=== PATIENT | female | born 1960 | race Caucasian/White ===

== ENCOUNTER 2022-05-21 18:18 | Emergency (ER) | payer BC, SELFPAY ==
[2022-05-21 18:42] VITALS: BP 118/76; PULSE 76; RESP 18; TEMP 36.6; O2SAT 97; BMI 32.6
--- NOTE | 2022-05-21 18:44 | CRLHL7_ITS ---
For Patients: As a result of the Century Cures Act, medical imaging exams and procedure reports are released immediately into your electronic medical record. You may view this report before your referring provider. If you have questions, please contact your health care provider. INDICATION: Foot pain. COMPARISON: None. TECHNIQUE: Three radiographs left foot. FINDINGS: Possible soft tissue swelling along the dorsal forefoot. Normal alignment. Joint spaces preserved. No fracture. IMPRESSION: No acute osseous abnormality. Dictated by Vamsi Rodrigues MD @ 05/21/2022 7:17:59 PM (Electronically Signed)
--- NOTE | 2022-05-21 18:48 | ED.NURSE ---
Pt to radiology
--- NOTE | 2022-05-21 18:54 | ED.NURSE ---
Pt done with radiology, back in lobby
== END 2022-05-21 19:10 | disposition left against medical advice (07) ==
LOC: ED 19:08
DX: Z53.21 Procedure and treatment not carried out due to patient leaving prior to being seen by health care provider (principal)
CPT/HCPCS: 99281; 73630

== ENCOUNTER 2024-03-04 09:52 | Outpatient (CLI) | payer MEDICARE, BC, SELFPAY | END 2024-03-04 09:53 | disposition home or self-care (01) | PROVIDERS: PCP Nurse Practitioner Family; Visit Provider Nurse Practitioner Family | DX: Z00.00 Encounter for general adult medical examination without abnormal findings (principal); E11.9 Type 2 diabetes mellitus without complications; I10 Essential (primary) hypertension; G62.9 Polyneuropathy, unspecified; M85.80 Other specified disorders of bone density and structure, unspecified site; I25.10 Atherosclerotic heart disease of native coronary artery without angina pectoris | CPT/HCPCS: 80053; 80061; 82043; 82570; 82607; 84443 ==

== ENCOUNTER 2024-03-18 15:23 | Outpatient (CLI) | payer MEDICARE, BC, SELFPAY ==
--- NOTE | 2024-03-18 15:30 | CRLHL7_ITS ---
For Patients: As a result of the Century Cures Act, medical imaging exams and procedure reports are released immediately into your electronic medical record. You may view this report before your referring provider. If you have questions, please contact your health care provider. DXA BONE MINERAL DENSITY STUDY Reason for exam: Osteopenia. Current height (in): 62. Weight (lb): 180. Menopause age: 40. Ethnicity: White. 1. Have you had a previous hip or vertebral fracture? No. 2. Have you had any fractures during your adult life which did not result from significant trauma (e.g., auto accident)? No. 3. Did either of your parents have a hip fracture? No. 4. Do you smoke? No. 5. Have you ever taken Glucocorticoids? No. 6. Do you have rheumatoid arthritis? No. 7. Do you have secondary osteoporosis? No. 8. Do you drink 3 or more alcoholic drinks per day? No. 9. Are you being treated for osteoporosis? No. 10. Have you ever taken any of the following medications: Actonel, Evista, Fosamax, Miacalcin, Reclast, Boniva, Forteo, HRT (i.e. estrogen/hormone therapy), Protelos, Prolia, Vitamin D, Calcium, other ??? please specify. ANSWER: Yes, vitamin D, calcium. 11. Do you have any of the following medical conditions: Anorexia or bulimia, asthma or emphysema, end stage renal disease, hyperparathyroidism, any seizure disorders, cancer, inflammatory bowel diseases, hysterectomy, other ??? please specify. ANSWER: No. 12. What was your maximum height (inches)? 62. 13. Do you perform weight bearing exercise regularly? No. 14. Do you regularly consume dairy products? Yes. 15. Do you drink caffeinated beverages? Yes. 16. At what age did your period start? 10. 17. Are you premenopausal? No. 18. How many full term pregnancies have you had? 4. 19. Have you ever missed your period for more than 6 months in a row (not including or menopause)? No. TECHNIQUE: Bone mineral density study was performed using the VU[employer]. FINDINGS: The results of the study expressed as bone mineral density (BMD) are as follows: Lumbar spine L1 to L4: BMD: 1.197 g/cm2. T-score: 1.4. Z-score: 3.1. Neck Left: BMD: 0.764 g/cm2. T-score: -0.8. Z-score: 0.8. Right: BMD: 0.666 g/cm2. T-score: -1.6. Z-score: -0.1. Total Left: BMD: 0.821 g/cm2. T-score: -1.0. Z-score: 0.3. Right: BMD: 0.871 g/cm2. T-score: -0.6. Z-score: 0.7. IMPRESSION: Osteopenia. *Comparison exams done prior to 03/2020 were performed on different unit, [employer]. COMPARISON: Compared with scan of 12/23/2013, the bone mineral density has increased by 21.5 percent at the spine and increased by 6.3 percent at the hip. FRAX 10-year Fracture Risk Major Osteoporotic Fracture: 8.8 percent Hip Fracture: 1.0 percent Reported Risk Factors: [place] () Neck BMD=0.666, BMI=32.9 MICHAEL DOUGHERTY M.D. [email or web address] be/Dictated by: Michael Dougherty MD @ 03/19/2024 4:05:00 PM (Electronically Signed)
== END 2024-03-18 15:24 | disposition home or self-care (01) ==
LOC: RAD 15:25
PROVIDERS: PCP Nurse Practitioner Family; Visit Provider Nurse Practitioner Family
DX: M85.80 Other specified disorders of bone density and structure, unspecified site (principal); M85.89 Other specified disorders of bone density and structure, multiple sites; Z78.0 Asymptomatic menopausal state
CPT/HCPCS: 77080

== ENCOUNTER 2024-05-25 13:40 | Outpatient (CLI) | payer MEDICARE, BC, SELFPAY ==
--- NOTE | 2024-05-25 13:40 | CRLHL7_ITS ---
For Patients: As a result of the Century Cures Act, medical imaging exams and procedure reports are released immediately into your electronic medical record. You may view this report before your referring provider. If you have questions, please contact your health care provider. BILATERAL SCREENING MAMMOGRAM WITH COMPUTER-AIDED DETECTION AND TOMOSYNTHESIS TECHNIQUE: CC and MLO views were obtained. These mammographic images have been obtained using full-field digital technique. These mammographic images were interpreted with the benefit of computer-aided detection. Breast tomosynthesis was used in this interpretation. COMPARISON FILM: 11/17/20, 09/08/19, 08/31/18. FINDINGS: There are scattered areas of fibroglandular density. IMPRESSION: There is no radiographic evidence for malignancy. ASSESSMENT: BI-RADS Category 2: Benign RECOMMENDATION: Routine screening mammogram in 1 year. A lay language report of this examination will be provided to the patient. ISAC LOYA M.D. Diagnostic Radiologist [email or web address] Transcribed: 3:[address]/Dictated by: Isac Loya MD @ 05/26/2024 11:06:00 AM (Electronically Signed)
== END 2024-05-25 13:41 | disposition home or self-care (01) ==
LOC: MAMMO 13:40
PROVIDERS: PCP Nurse Practitioner Family; Visit Provider Nurse Practitioner Family
DX: Z12.31 Encounter for screening mammogram for malignant neoplasm of breast (principal)
CPT/HCPCS: 77063; 77067

== ENCOUNTER 2024-05-26 16:34 | Emergency (ER) | payer MEDICARE, BC, SELFPAY ==
[2024-05-26 16:39] VITALS: BP 105/72; PULSE 78; RESP 16; TEMP 36.4; O2SAT 97; BMI 33.3
--- NOTE | 2024-05-26 16:44 | ED_ITS ---
HPI - Wound/Laceration General Time Seen by Provider: 16:44 Date Seen: 05/26/24 Chief Complaint: Laceration/Wound Stated Complaint: laceration on left index finger Time Seen by Provider: 05/26/24 16:35 Source: patient and RN notes reviewed Mode of arrival: ambulatory Limitations: no limitations History of Present Illness HPI narrative: Minna is a 63-year-old female that accidentally cut her finger on a trimmer buffing wheel about an hour ago. She has bandages on and the bleeding has stopped. She is on Plavix, is on an 81 mg aspirin but has not taken 1 for a while as she ran out. She states she just has not gotten to the store to replace them. Related Data Home Medications ?Medication ?Instructions ?Recorded ?Confirmed clopidogrel 75 mg tablet 75 mg PO QDAY 01/06/24 03/04/24 gabapentin 600 mg tablet 600 mg PO TID 01/06/24 03/04/24 simvastatin 40 mg tablet 40 mg PO QDAY 01/06/24 03/04/24 calcium carbonate 600 mg-vitamin cap PO 03/16/24 03/16/24 D3 10 mcg (400 unit) capsule lansoprazole 15 mg capsule,delayed 15 mg PO QDAY 03/16/24 03/16/24 release Previous Rx's ?Medication ?Instructions ?Recorded bupropion HCl 150 mg tablet,12 hr 150 mg PO BID #180 tabs 02/25/24 sustained-release semaglutide 0.25 mg or 0.5 mg (2 0.25 mg (0.368 mL) subcut QWEEK 90 03/08/24 mg/3 mL) subcutaneous pen injector days #4.784 mL metformin 1,000 mg tablet 1,000 mg PO BID #180 tabs 03/15/24 pen needle, diabetic 29 gauge x #100 ea 03/15/24 1/2 (Comfort EZ Pen [place]) blood-glucose meter,continuous #1 ea 03/16/24 (Dexcom G7 Guest Specialist) blood-glucose sensor (Dexcom G7 #3 ea 03/16/24 Sensor device) glipizide 5 mg tablet 2.5 mg (1/2 x 5 mg) PO BID #90 tabs 03/16/24 lisinopril 20 mg tablet 20 mg PO QDAY #90 tabs 03/16/24 metoprolol tartrate 25 mg tablet 25 mg PO BID #180 tabs 03/16/24 Allergies Allergy/AdvReac Type Severity Reaction Status Date / Time azithromycin AdvReac Intermediate Vomiting Verified 05/26/24 16:42 PFSH PFSH Surgical History (Updated 03/03/24 @ 20:40 by Nola Perez APRN, WASTE MANAGEMENT ENGINEER) History of esophagogastroduodenoscopy (EGD) ?Z98.890 - Other specified postprocedural states (ICD-10) History of cholecystectomy ?Z90.49 - Acquired absence of other specified parts of digestive tract (ICD- 10) History of colonoscopy ?Z98.890 - Other specified postprocedural states (ICD-10) History of appendectomy ?Z90.49 - Acquired absence of other specified parts of digestive tract (ICD- 10) History of coronary angioplasty ?Z98.61 - Coronary angioplasty status (ICD-10) History of tubal ligation ?Z98.51 - Tubal ligation status (ICD-10) Family History (Updated 03/04/24 @ 12:21 by Nola Perez APRN, WASTE MANAGEMENT ENGINEER) Father Prostate cancer, Onset Age: 95 Brother HIV (human immunodeficiency virus infection) Mother Osteoporosis Daughter Barretts esophagus Social History (Updated 01/15/24 @ 18:37 by Nola Perez APRN, WASTE MANAGEMENT ENGINEER) Narrative: . 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 Current smoker. No alcohol. No illicit drug use. Exam Const: Vital Signs, click to edit/add: Vital Signs - 24 hr 05/26/24 16:39 Temperature 97.5 F L Pulse Rate [Pulse Oximeter] 78 Respiratory Rate 16 Blood Pressure [Ri ght Upper Arm] 105/72 Pulse Oximetry 97 Oxygen Delivery Me thod Room Air Bandages were removed from her left hand index finger and she has a V flap type laceration with the base of skin proximal. There is active bleeding. This laceration is along the lateral distal phalanx of the 2nd finger but does not involve the nail. Procedure note: As this wound was inspected further, there are some other areas, somewhat complex laceration. A total of 8 simple interrupted sutures were placed in this wound to reapproximate the tissues. Patient did demonstrate full flexion and extension along the course of this digit, there is no compromised motor function. Although the wound was deep, it did not compromise any underlying structures. Hemostasis was observed with placement of the simple interrupted sutures, 4-0 Ethilon was used. Up nursing staff did clean the wound but due to the significant ongoing oozing of blood, repair was done quickly. For anesthesia, localized it injection with a total of 3 mL of 1% lidocaine was used, total of 8 mL was drawn up. No distal change in sensation of this finger prior to the repair. She is aware that there can be some local anesthesia from the wound. Documenting provider has reviewed patient's vital signs: yes Course Course ED Course: Minna thought her tetanus was up-to-date, it is last noted to be given on 08/11/2014, will see if she wants to update it now. Reevaluation(s) Time of Reevaluation #1: 17:11 Reevaluation #1: Minna agrees to have her tetanus updated at this time. Vital Signs Vital signs: Initial Vital Signs Temperature 97.5 F L 05/26/24 16:39 Temperature Source Temporal Artery Scan 05/26/24 16:39 Pulse Rate 78 05/26/24 16:39 Pulse Rhythm Regular 05/26/24 16:39 Pulse Strength 3+ Normal 05/26/24 16:39 Respiratory Rate 16 05/26/24 16:39 Blood Pressure 105/72 05/26/24 16:39 Blood Pressure Mean 83 05/26/24 16:39 Blood Pressure Position Sitting 05/26/24 16:39 Pulse Oximetry 97 05/26/24 16:39 Oxygen Delivery Method Room Air 05/26/24 16:39 Vital Signs Temperature 97.5 F L 05/26/24 16:39 Pulse Rate 78 05/26/24 16:39 Respiratory Rate 16 05/26/24 16:39 Blood Pressure 105/72 05/26/24 16:39 Pulse Oximetry 97 05/26/24 16:39 Oxygen Delivery Method Room Air 05/26/24 16:39 Temperature 97.5 F L 05/26/24 16:39 Pulse Rate 78 05/26/24 16:39 Respiratory Rate 16 05/26/24 16:39 Blood Pressure 105/72 05/26/24 16:39 Pulse Oximetry 97 05/26/24 16:39 Oxygen Delivery Method Room Air 05/26/24 16:39 Discharge Plan Discharge Clinical Impression: Finger laceration Qualifiers: Encounter type: initial encounter Finger: index finger Damage to nail status: without damage Foreign body presence: without foreign body Laterality: left Qualified Code(s): S61.211A - Laceration without foreign body of left index finger without damage to nail, initial encounter Patient Disposition: Home, Self-Care Condition: Stable Instructions: Finger Laceration (ED) Additional Instructions: May shower and wash hands but should otherwise keep this finger clean and dry. Use bandages with bacitracin to keep the wound protected if you are out or in public. Need to schedule clinic follow-up in about 10 days to assess this wound for suture removal. If there is concern for infection, please seek re- evaluation. Can use Tylenol for discomfort if needed, follow bottle directions. Try to rest your finger, can use ice pack to help diminish any ongoing mild bleeding of this wound, may need to minimize use of the finger for the next couple of days. Prescriptions: No Action (DME) pen needle, diabetic [Comfort EZ Pen [place]] 29 gauge x 1/2 needle See Rx Instructions .Route Qty: 100 3RF Rx Instructions: weekly lansoprazole 15 mg capsule,delayed release(DR/EC) 15 mg PO QDAY calcium carbonate-vitamin D3 600 mg-10 mcg (400 unit) capsule PO (DME) Dexcom G7 Guest Specialist Misc See Rx Instructions .Route Qty: 1 0RF Rx Instructions: As directed (DME) Dexcom G7 Sensor Device See Rx Instructions .Route Qty: 3 6RF Rx Instructions: As directed clopidogrel 75 mg tablet 75 mg PO QDAY gabapentin 600 mg tablet 600 mg PO TID simvastatin 40 mg tablet 40 mg PO QDAY bupropion HCl 150 mg tablet sustained-release 12 hr 150 mg PO BID Qty: 180 3RF semaglutide 0.25 mg or 0.5 mg (2 mg/3 mL) pen injector 0.25 mg subcut QWEEK 90 Days Qty: 4.784 3RF Rx Instructions: for 4 weeks metformin 1,000 mg tablet 1,000 mg PO BID Qty: 180 3RF metoprolol tartrate 25 mg tablet 25 mg PO BID Qty: 180 1RF lisinopril 20 mg tablet 20 mg PO QDAY Qty: 90 1RF glipizide 5 mg tablet 2.5 mg PO BID Qty: 90 1RF Follow Up/Referrals: Nola Perez APRN, WASTE MANAGEMENT ENGINEER [Primary Care Provider] - Stand Alone Forms: [facility] Info Instructions
[2024-05-26] MEDS: LIDOCAINE 1% MDV 8 ML INJECTION (17:14)
[2024-05-26] MEDS: TETANUS/DIPHTH/PERTUSSIS 0.5 ML SYRINGE IM (17:14)
== END 2024-05-26 17:26 | disposition home or self-care (01) ==
PROVIDERS: Emergency Provider Family Medicine; PCP Nurse Practitioner Family
DX: S61.211A Laceration without foreign body of left index finger without damage to nail, initial encounter (principal); W29.3XXA Contact with powered garden and outdoor hand tools and machinery, initial encounter
CPT/HCPCS: 12001; 90471; 90715; 99283

== ENCOUNTER 2024-06-22 11:28 | Outpatient (CLI) | payer MEDICARE, BC, SELFPAY ==
--- NOTE | 2024-06-22 11:30 | CRLHL7_ITS ---
For Patients: As a result of the Cures Act, medical imaging exams and procedure reports are released immediately into your electronic medical record. You may view this report before your referring provider. If you have questions, please contact your health care provider. INDICATION: Abnormal liver enzymes. FINDINGS: An abdominal ultrasound shows increased echogenicity of the liver. Normal liver size and contour. No focal liver lesions identified. No bile duct dilation with the common bile duct measuring 5 mm. Cholecystectomy. No abnormalities identified in the visualized portions of the pancreatic head and body, aorta, IVC, and right kidney. No right-sided hydronephrosis. Impression : 1. Diffuse fatty infiltration of the liver. 2. No bile duct dilation. Cholecystectomy. Dictated by Christophe Bhardwaj MD @ 06/23/2024 10:27:21 AM (Electronically Signed)
== END 2024-06-22 11:29 | disposition home or self-care (01) ==
LOC: US 11:29
PROVIDERS: PCP Nurse Practitioner Family; Visit Provider Nurse Practitioner Family
DX: R74.8 Abnormal levels of other serum enzymes (principal); K76.0 Fatty (change of) liver, not elsewhere classified
CPT/HCPCS: 76705

== ENCOUNTER 2024-10-04 16:42 | Emergency (ER) | payer MEDICARE, BC, SELFPAY ==
[2024-10-04 17:17] VITALS: BP 137/84; PULSE 98; RESP 20; TEMP 36.8; O2SAT 96; BMI 31.5
[2024-10-04 17:56] LABS: Strep A DNA Probe* NOT DETECTED (Not Detectd)
--- NOTE | 2024-10-04 18:27 | ED_ITS ---
HPI - General Adult General Chief complaint: Sore Throat Stated complaint: Throat abscess Time Seen by Provider: 10/04/24 18:04 History of Present Illness HPI narrative: This 63-year-old female comes in reporting 5+ days of sore throat. She reports an occasional cough. She went to urgent care and was sent here for further evaluation. She arrives with normal vital signs. She states that she has been taking Tylenol and ibuprofen without any relief of her sore throat. She does not have any muffled voice and does not report any fevers. Related Data Home Medications ?Medication ?Instructions ?Recorded ?Confirmed simvastatin 40 mg tablet 40 mg PO QDAY 01/06/24 10/04/24 gabapentin 600 mg tablet 600 mg PO BID 09/16/24 10/04/24 nortriptyline 25 mg capsule 50 mg PO QHS 09/16/24 10/04/24 calcium 600 mg (as 1 cap PO 10/04/24 10/04/24 carbonate)-vitamin D3 10 mcg (400 unit) capsule Previous Rx's ?Medication ?Instructions ?Recorded bupropion HCl 150 mg tablet,12 hr 150 mg PO BID #180 tabs 02/25/24 sustained-release metformin 1,000 mg tablet 1,000 mg PO BID #180 tabs 03/15/24 blood-glucose meter,continuous #1 ea 03/16/24 (Dexcom G7 Horticultural Specialty Grower Inside) blood-glucose sensor (Dexcom G7 #3 ea 03/16/24 Sensor device) clopidogrel 75 mg tablet 75 mg PO QDAY #90 tabs 08/30/24 lisinopril 20 mg tablet 20 mg PO QDAY #90 tabs 09/09/24 metoprolol tartrate 25 mg tablet 25 mg PO BID #180 tabs 09/09/24 blood sugar diagnostic (Contour #100 ea 09/16/24 Next Test Strips) cyclobenzaprine 10 mg tablet 10 mg PO TID #30 tabs 09/16/24 lansoprazole 15 mg capsule,delayed 15 mg PO QDAY #90 caps 09/16/24 release liraglutide 0.6 mg/0.1 mL (18 mg/3 See Rx Instructions subcut 09/16/24 mL) subcutaneous pen injector .COMPLEX #6 mL pen needle, diabetic 31 gauge x #100 ea 09/16/2412/19 (1st Tier Unifine Pentips) amoxicillin 875 mg-potassium 1 tab PO BID #14 tabs 10/04/24 clavulanate 125 mg tablet ketorolac 10 mg tablet 10 mg PO Q8H 5 days #15 tabs 10/04/24 methylprednisolone 4 mg tablets in See Rx Instructions PO .COMPLEX 10/04/24 a dose pack (Medrol (Jose)) #21 ea Allergies Allergy/AdvReac Type Severity Reaction Status Date / Time azithromycin AdvReac Intermediate Vomiting Verified 10/04/24 15:15 Review of Systems Status of ROS: Reports: 10 or more systems reviewed and unremarkable except as noted in History and below Narrative: Constitutional: No fevers, no weight gain or loss. Eyes: No discharge. No vision changes. HENT: No congestion, no ear pain. Severe sore throat. Cardiovascular: No chest pain, no palpitations. Respiratory: No shortness of breath, no wheezes, no cough. Gastrointestinal: No abdominal pain, no vomiting, no diarrhea. Genitourinary: No dysuria, no hematuria. Musculoskeletal: Normal range of motion. Skin: No rashes, no pruritis. Neurological: No dizziness, weakness, sensory change, speech change. Endo/Heme/Allergies: No bruising or bleeding. No polydipsia. Pysch: no suicidality, no anxiety, no insomnia. All other systems reviewed and are negative. PFSH PFSH Surgical History (Updated 03/03/24 @ 20:40 by Nola Perez APRN, FIXER SUPERVISOR) History of esophagogastroduodenoscopy (EGD) ?Z98.890 - Other specified postprocedural states (ICD-10) History of cholecystectomy ?Z90.49 - Acquired absence of other specified parts of digestive tract (ICD-10) History of colonoscopy ?Z98.890 - Other specified postprocedural states (ICD-10) History of appendectomy ?Z90.49 - Acquired absence of other specified parts of digestive tract (ICD- 10) History of coronary angioplasty ?Z98.61 - Coronary angioplasty status (ICD-10) History of tubal ligation ?Z98.51 - Tubal ligation status (ICD-10) Family History (Updated 03/04/24 @ 12:21 by Nola Perez APRN, FIXER SUPERVISOR) Father Prostate cancer, Onset Age: 95 Brother HIV (human immunodeficiency virus infection) Mother Osteoporosis Daughter Barretts esophagus Social History (Updated 01/15/24 @ 18:37 by Nola Perez, FLOWER GROWER, FIXER SUPERVISOR) Narrative: . 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 Current smoker. No alcohol. No illicit drug use. Smoking Status: Never smoker Do you use any of these nicotine containing products: None Second hand tobacco smoke exposure: No How often do you have a drink containing alcohol: never AUDIT-C Alcohol total score: 0 Non-prescribed substance use: denies use service: No Exam Narrative: Exam Narrative: Constitutional: Well-developed, well-nourished, no acute distress. HEENT: Normocephalic, atraumatic. Pharyngeal erythema with some exudate. No tonsillar hypertrophy. Neck: Normal range of motion. Nontender. Supple. Heart: Regular. No murmurs. Normal rate. Intact distal pulses. Lungs: Clear to auscultation. No chest discomfort. No wheezes, rhonchi, or rales. Abdomen: Normal bowel sounds. Nontender. No rebound tenderness. Genitalia: Deferred. Back: No midline tenderness. Normal range of motion. Extremities: Normal range of motion. No injury. Skin: Intact. No rash. Warm. No erythema or pallor. Neurologic: No altered sensation. No weakness. Alert and oriented. Psychiatric: No suicidality. No anxiety or depression. No insomnia. Nursing notes and vitals signs are reviewed. Const: Vital Signs, click to edit/add: Vital Signs - 24 hr 10/04/24 17:17 Temperature 98.2 F Pulse Rate [Pulse Oximeter] 98 Respiratory Rate 20 Blood Pressure [Ri ght Upper Arm] 137/84 Pulse Oximetry 96 Oxygen Delivery Me thod Room Air Course Vital Signs Vital signs: Initial Vital Signs Temperature 98.2 F 10/04/24 17:17 Temperature Source Oral 10/04/24 17:17 Pulse Rate 98 10/04/24 17:17 Respiratory Rate 20 10/04/24 17:17 Blood Pressure 137/84 10/04/24 17:17 Blood Pressure Mean 101 10/04/24 17:17 Blood Pressure Position Sitting 10/04/24 17:17 Pulse Oximetry 96 10/04/24 17:17 Oxygen Delivery Method Room Air 10/04/24 17:17 Vital Signs Temperature 98.2 F 10/04/24 17:17 Pulse Rate 98 10/04/24 17:17 Respiratory Rate 20 10/04/24 17:17 Blood Pressure 137/84 10/04/24 17:17 Pulse Oximetry 96 10/04/24 17:17 Oxygen Delivery Method Room Air 10/04/24 17:17 Temperature 98.2 F 10/04/24 17:17 Pulse Rate 98 10/04/24 17:17 Respiratory Rate 20 10/04/24 17:17 Blood Pressure 137/84 10/04/24 17:17 Pulse Oximetry 96 10/04/24 17:17 Oxygen Delivery Method Room Air 10/04/24 17:17 Medications Administered Medications: Generic Name Dose Route Start Last Admin Trade Name Frankie PRN Reason Stop Dose Admin Dexamethasone 10 mg 10/04/24 18:25 10/04/24 18:51 Dexamethasone 10 Mg/Ml Inj IM 10/04/24 18:26 10 mg ONCE ONE Administration Ketorolac Tromethamine 15 mg 10/04/24 18:25 10/04/24 18:51 Ketorolac 30 Mg/Ml Inj IM 10/04/24 18:26 15 mg ONCE ONE Administration Medical Decision Making [facility] Narrative Medical decision making narrative: This patient comes in reporting sore throat for more than the past 5 days. A rapid strep test is obtained and returns negative. The patient is not showing any signs of muffled voice or trismus or other findings on exam that are suspicious for tonsillar abscess. She did receive intramuscular injections of Toradol 15 mg and dexamethasone 10 mg. Rapid strep test and viral testing also is all negative. The patient does have purulence in the oropharynx. I did prescribe Medrol Dosepak, Toradol, and Augmentin. She understands that this may be a virus that would not benefit from antibiotic therapy. She has had sore throat for 5 days and seems to be worsening. I did advise her regarding signs and symptoms that would indicate need for return and re-evaluation. Lab Data Labs: Lab Results 10/04/24 10/04/24 Range/Units 17:29 18:00 SARS-CoV-2 (PCR) Negative SARS-CoV-2 (Negative) Influenza Type A (PCR) Negative PCR FLU A (Negative) Influenza Type B (PCR) Negative PCR FLU B (Negative) RSV (PCR) Negative PCR RSV (Negative) Group A Strep DNA NOT DETECTED (Not Detectd) Discharge Plan Discharge Clinical Impression: Acute tonsillitis Patient Disposition: Home, Self-Care Condition: Improved Additional Instructions: Take medications as prescribed. Follow up with MD or return if worsening symptoms happen. Prescriptions: New ketorolac 10 mg tablet 10 mg PO Q8H 5 Days Qty: 15 0RF methylprednisolone [Medrol (Jose)] 4 mg tablets,dose pack See Rx Instructions .ROUTE .COMPLEX Qty: 21 0RF Rx Instructions: orally per package directions amoxicillin-pot clavulanate 875-125 mg tablet 1 tab PO BID Qty: 14 0RF No Action (DME) Dexcom G7 Horticultural Specialty Grower Inside Misc See Rx Instructions .Route Qty: 1 0RF Rx Instructions: As directed (DME) Dexcom G7 Sensor Device See Rx Instructions .Route Qty: 3 6RF Rx Instructions: As directed calcium carbonate-vitamin D3 600 mg-10 mcg (400 unit) capsule 1 cap PO simvastatin 40 mg tablet 40 mg PO QDAY gabapentin 600 mg tablet 600 mg PO BID liraglutide 0.6 mg/0.1 mL (18 mg/3 mL) pen injector See Rx Instructions subcut .COMPLEX Qty: 6 12RF Rx Instructions: inject 0.6mg subcutaneously once daily x 7 days; then 1.2mg daily, not to exceed 1.8mg/day subcut lansoprazole 15 mg capsule,delayed release(DR/EC) 15 mg PO QDAY Qty: 90 3RF (DME) pen needle, diabetic [1st Tier Unifine Pentips] 31 gauge x 3/16 needle See Rx Instructions .Route Qty: 100 3RF Rx Instructions: As directed (DME) Contour Next Test Strips Strip See Rx Instructions .Route Qty: 100 3RF Rx Instructions: As directed cyclobenzaprine 10 mg tablet 10 mg PO TID Qty: 30 0RF nortriptyline 25 mg capsule 50 mg PO QHS bupropion HCl 150 mg tablet sustained-release 12 hr 150 mg PO BID Qty: 180 3RF metformin 1,000 mg tablet 1,000 mg PO BID Qty: 180 3RF clopidogrel 75 mg tablet 75 mg PO QDAY Qty: 90 3RF lisinopril 20 mg tablet 20 mg PO QDAY Qty: 90 0RF metoprolol tartrate 25 mg tablet 25 mg PO BID Qty: 180 0RF Follow Up/Referrals: Nola Perez, FLOWER GROWER, FIXER SUPERVISOR [Primary Care Provider] - Stand Alone Forms: [facility] Instructions
[2024-10-04] MEDS: KETOROLAC 30 MG/ML inj 15 MG IM (18:51)
[2024-10-04] MEDS: dexAMETHasone 10 MG/ML inj IM (18:51)
[2024-10-04 19:01] LABS: PCR FLU A Negative PCR FLU A (Negative); PCR FLU B Negative PCR FLU B (Negative); PCR RSV Negative PCR RSV (Negative); SARS PCR* Negative SARS-CoV-2 (Negative)
== END 2024-10-04 20:03 | disposition home or self-care (01) ==
PROVIDERS: Emergency Provider Emergency Medicine Emergency Medical Services; PCP Nurse Practitioner Family
DX: J03.90 Acute tonsillitis, unspecified (principal)
CPT/HCPCS: 87631; 87651; 96372; 99284; J1100; J1885

== ENCOUNTER 2024-10-07 13:59 | Outpatient (CLI) | payer MEDICARE, BC, SELFPAY ==
--- NOTE | 2024-10-07 14:00 | CRLHL7_ITS ---
For Patients: As a result of the Century Cures Act, medical imaging exams and procedure reports are released immediately into your electronic medical record. You may view this report before your referring provider. If you have questions, please contact your health care provider. INDICATION: Acute pharyngitis. TECHNIQUE: CT soft tissue of the neck was acquired with 84 cc of Isovue 370 IV contrast. COMPARISON: None. FINDINGS: Oral cavity, nasopharynx, oropharynx, hypopharynx, larynx and subglottic trachea as imaged show no discrete mucosal lesion. No CT evidence of tonsillitis or peritonsillar fluid collection. No retropharyngeal fluid or suspicious fluid collection elsewhere in the neck. No pathologic lymphadenopathy. Parotid and submandibular glands: Unremarkable. Thyroid gland: Unremarkable. Vessels: Major vascular structures are grossly patent. Paranasal sinuses and orbits: Periapical lucency of right maxillary molar (axial image 31 of series 3) with adjacent mild mucosal thickening in the right maxillary sinus. Paranasal sinuses and orbits as imaged are otherwise unremarkable. Bones: No acute or suspicious osseous abnormality. Degenerative changes of the spine. Lung apices: Mild paraseptal emphysema at the lung apices. Visualized lungs are otherwise clear. IMPRESSION: 1. No CT evidence of tonsillitis or peritonsillar abscess. 2. No pathologic cervical lymphadenopathy. 3. Right maxillary dental disease with adjacent maxillary mucosal thickening. Dictated by Jj Perez MD @ 10/07/2024 3:21:26 PM Please note that all CT scans at this facility use dose modulation, iterative reconstruction, and/or weight-based dosing when appropriate to reduce radiation dose to as low as reasonably achievable. Dictated by: Jj Perez MD @ 10/07/2024 15:22:08 (Electronically Signed)
[2024-10-07 14:33] LABS: Estimated Glomerular Filt Rate 63 ml/min
== END 2024-10-07 14:00 | disposition home or self-care (01) ==
LOC: CT 14:02
PROVIDERS: PCP Nurse Practitioner Family; Visit Provider Nurse Practitioner Family
DX: J02.9 Acute pharyngitis, unspecified (principal); J32.0 Chronic maxillary sinusitis; Z51.81 Encounter for therapeutic drug level monitoring
CPT/HCPCS: 36415; 70491; 82565; Q9967

== ENCOUNTER 2024-10-14 11:36 | Outpatient (CLI) | payer MEDICARE, BC, SELFPAY ==
--- NOTE | 2024-10-14 13:08 | P.ANES_ITS ---
Anesthesia Charges Start Date/Time Anesthesia Start Date: 10/14/24 Anesthesia Start Time: 12:25 Stop Date/Time Anesthesia Stop Date: 10/14/24 Anesthesia Stop Time: 13:08 Coding CPT Codes CPT Codes: ANES UPR LWR GI NDSC PX - 80576 ([id number]) P3 - PATIENT W/SEVERE SYS DISEASE, QX - WEBBING SEAMER POUND NET KIM W/ MD MED DIRECTION, QK - EMULSIFICATION OPERATOR 2-4 CNCRNT ANES PROC
--- NOTE | 2024-10-14 13:08 | W.ANESCHARGE ---
Anesthesia Charges Start Date/Time Anesthesia Start Date: 10/14/24 Anesthesia Start Time: 12:25 Stop Date/Time Anesthesia Stop Date: 10/14/24 Anesthesia Stop Time: 13:08 Coding CPT Codes CPT Codes: ANES UPR LWR GI NDSC PX - 45391 ([id number]) P3 - PATIENT W/SEVERE SYS DISEASE, QX - LIVESTOCK TRADER KIM W/ MD MED DIRECTION, QK - FIRST CRUSHER 2-4 CNCRNT ANES PROC
--- NOTE | 2024-10-14 13:12 | P.ANES_ITS ---
Anesthesia Charges Start Date/Time Anesthesia Start Date: 10/14/24 Anesthesia Start Time: 12:25 Stop Date/Time Anesthesia Stop Date: 10/14/24 Anesthesia Stop Time: 13:08 Coding CPT Codes CPT Codes: ANES UPR LWR GI NDSC PX - 46688 ([id number]) QK - SECONDARY SCHOOL TEACHER LIBRARIAN 2-4 CNCRNT ANES PROC, QX - ENVIRONMENTAL HEALTH SAFETY MANAGER SVC W/ MED DIRECTION, P3 - PATIENT W/SEVERE SYS DISEASE
--- NOTE | 2024-10-14 13:12 | W.ANESCHARGE ---
Anesthesia Charges Start Date/Time Anesthesia Start Date: 10/14/24 Anesthesia Start Time: 12:25 Stop Date/Time Anesthesia Stop Date: 10/14/24 Anesthesia Stop Time: 13:08 Coding CPT Codes CPT Codes: ANES UPR LWR GI NDSC PX - 66554 ([id number]) QK - BAKERY WORKER 2-4 CNCRNT ANES PROC, QX - VENEER DEPARTMENT MANAGER SVC W/ MED DIRECTION, P3 - PATIENT W/SEVERE SYS DISEASE
== END 2024-10-14 11:37 | disposition home or self-care (01) ==
LOC: OP CLINIC 11:36
PROVIDERS: PCP Nurse Practitioner Family; Visit Provider Surgery
DX: Z12.11 Encounter for screening for malignant neoplasm of colon (principal); D12.3 Benign neoplasm of transverse colon; D12.4 Benign neoplasm of descending colon; K64.8 Other hemorrhoids; K57.30 Diverticulosis of large intestine without perforation or abscess without bleeding; K22.70 Barrett's esophagus without dysplasia; K22.89 Other specified disease of esophagus; K44.9 Diaphragmatic hernia without obstruction or gangrene; Z86.0100 Personal history of colon polyps, unspecified
CPT/HCPCS: 00813; 43239; 45385; 88305; J2704

== ENCOUNTER 2025-02-10 14:35 | Emergency (ER) | payer MEDICARE, BC, SELFPAY ==
[2025-02-10 14:42] VITALS: BP 177/112; PULSE 95; RESP 18; TEMP 36.6; O2SAT 95; BMI 29.8
--- NOTE | 2025-02-10 14:54 | ED.SKABFB ---
HPI - Skin/Abscess/Foreign Bdy General Time Seen by Provider: 14:54 Date Seen: 02/10/25 Chief complaint: Skin/Abscess/Foreign Body Stated complaint: Swollen L side of face Time Seen by Provider: 02/10/25 14:54 Source: patient and RN notes reviewed Mode of arrival: ambulatory Limitations: no limitations History of Present Illness HPI narrative: Sue is a very pleasant 64-year-old female with history of tobacco use, GERD, type 2 diabetes and hypertension who comes to the emergency room from the clinic for evaluation regarding facial swelling. Patient woke yesterday morning with swelling around her eye her face and her neck that is worse today. It is associated with some upper dental pain that has been going on for at least a week. She has not had any fevers or vomiting with this. She does note the pain today seems to be more at her TMJ. She does not feel that it is hard to swallow or that she has a swollen tongue. No known trauma. Related Data Home Medications ?Medication ?Instructions ?Recorded ?Confirmed gabapentin 600 mg tablet 600 mg PO BID 09/16/24 02/10/25 calcium 600 mg (as 1 cap PO DAILY 10/04/24 02/10/25 carbonate)-vitamin D3 10 mcg (400 unit) capsule cyclobenzaprine 10 mg tablet 10 mg PO TID PRN 02/10/25 02/10/25 Previous Rx's ?Medication ?Instructions ?Recorded bupropion HCl 150 mg tablet,12 hr 150 mg PO BID #180 tabs 02/25/24 sustained-release metformin 1,000 mg tablet 1,000 mg PO BID #180 tabs 03/15/24 blood-glucose sensor (Dexcom G7 #3 ea 03/16/24 Sensor device) blood-glucose,advanced practice rn,cont #1 ea 03/16/24 (Dexcom G7 Exec. Creative Director) clopidogrel 75 mg tablet 75 mg PO QDAY #90 tabs 08/30/24 blood sugar diagnostic (Contour #100 ea 09/16/24 Next Test Strips) lansoprazole 15 mg capsule,delayed 15 mg PO QDAY #90 caps 09/16/24 release pen needle, diabetic 31 gauge x #100 ea 09/16/2412/19 (1st Tier Unifine Pentips) nortriptyline 25 mg capsule 50 mg (2 x 25 mg) PO QHS #180 caps 11/25/24 liraglutide 0.6 mg/0.1 mL (18 mg/3 1.8 mg (0.3 mL) subcut QDAY #27 mL 12/02/24 mL) subcutaneous pen injector lisinopril 20 mg tablet 20 mg PO QDAY #90 tabs 12/07/24 metoprolol tartrate 25 mg tablet 25 mg PO BID #180 tabs 12/07/24 simvastatin 40 mg tablet 40 mg PO QDAY #90 tabs 12/22/24 Allergies Allergy/AdvReac Type Severity Reaction Status Date / Time azithromycin AdvReac Intermediate Vomiting Verified 02/10/25 14:41 Review of Systems Status of ROS: Reports: 10 or more systems reviewed and unremarkable except as noted in History and below Const: Denies: fever or chills ENMT: Denies: throat pain, neck pain or nasal congestion Cardio: Denies: chest pain Resp: Denies: cough GI: Denies: abdominal pain, nausea or vomiting : Denies: painful urination Musculo: Denies: neck pain Integ/Breast: Reports: skin pain, skin tenderness and skin swelling; Denies: rash PFSH PFSH Surgical History History of esophagogastroduodenoscopy (EGD) ?Z98.890 - Other specified postprocedural states (ICD-10) History of cholecystectomy ?Z90.49 - Acquired absence of other specified parts of digestive tract (ICD-10) History of colonoscopy ?Z98.890 - Other specified postprocedural states (ICD-10) History of appendectomy ?Z90.49 - Acquired absence of other specified parts of digestive tract (ICD-10) History of coronary angioplasty ?Z98.61 - Coronary angioplasty status (ICD-10) History of tubal ligation ?Z98.51 - Tubal ligation status (ICD-10) Family History Father Prostate cancer, Onset Age: 95 Brother HIV (human immunodeficiency virus infection) Mother Osteoporosis Daughter Barretts esophagus Social History Narrative: . 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 Current smoker. No alcohol. No illicit drug use. Smoking Status: Current some day smoker What tobacco products do you use: cigarettes Do you use any of these nicotine containing products: None Second hand tobacco smoke exposure: No How often do you have a drink containing alcohol: never AUDIT-C Alcohol total score: 0 Non-prescribed substance use: denies use service: No Exam Narrative: Exam Narrative: Alert and oriented very pleasant woman. Examination shows obvious facial asymmetry with significant swelling of the left cheek extending around the left orbit and into the upper neck. This is associated with erythema as well. It areas are warm to the touch. Patient has some mild tenderness at the Chi TMJ but exquisite tenderness when touching tooth 12. No purulent discharge from this area but there is some swelling at the gum line. Neck is otherwise without lymphadenopathy and is supple. Heart with regular rate and rhythm and lungs are clear bilaterally. Abdomen soft and moving all extremities. Const: Vital Signs, click to edit/add: Vital Signs - 24 hr 02/10/25 14:42 02/10/25 16:38 Temperature 98 F 97.4 F L Pulse Rate [Pulse Oximeter] 95 94 Respiratory Rate 18 18 Blood Pressure [Le ft Upper Arm] 177/112 H 147/94 H Pulse Oximetry 95 96 Oxygen Delivery Me thod Room Air Room Air Documenting provider has reviewed patient's vital signs: yes Course Course ED Course: Differential diagnosis includes but is not limited to angioedema, dental infection, sepsis. At this time patient has normal examination of the tongue and airway is patent. Given the exquisite tenderness with touching 212 I suspect that this is a dental infection with extension of cellulitis. Will obtain CBC, comprehensive,, CRP, facial and neck CT. At this time will give Toradol 15 mg IV for discomfort. Also will consult with pharmacy regarding antibiotic choice. Reevaluation(s) Reevaluation #1: Was able to talk to pharmacy we will use Unasyn 3 g IV. Reevaluation #2: Patient noted significant relief with Toradol. Vital Signs Vital signs: Initial Vital Signs Temperature 98 F 02/10/25 14:42 Temperature Source Temporal Artery Scan 02/10/25 14:42 Pulse Rate 95 02/10/25 14:42 Respiratory Rate 18 02/10/25 14:42 Blood Pressure 177/112 H 02/10/25 14:42 Blood Pressure Mean 133 H 02/10/25 14:42 Blood Pressure Position Semi-Fowlers 02/10/25 14:42 Pulse Oximetry 95 02/10/25 14:42 Oxygen Delivery Method Room Air 02/10/25 14:42 Vital Signs Temperature 98 F 02/10/25 14:42 Pulse Rate 95 02/10/25 14:42 Respiratory Rate 18 02/10/25 14:42 Blood Pressure 177/112 H 02/10/25 14:42 Pulse Oximetry 95 02/10/25 14:42 Oxygen Delivery Method Room Air 02/10/25 14:42 Temperature 97.4 F L 02/10/25 16:38 Pulse Rate 94 02/10/25 16:38 Respiratory Rate 18 02/10/25 16:38 Blood Pressure 147/94 H 02/10/25 16:38 Pulse Oximetry 96 02/10/25 16:38 Oxygen Delivery Method Room Air 02/10/25 16:38 Medications Administered Medications: Discontinued Medications Generic Name Dose Route Start Last Admin Trade Name Freq PRN Reason Stop Dose Admin Ampicillin Sodium/Sulbactam 100 mls @ 200 mls/hr 02/10/25 15:30 02/10/25 16:38 Sodium 3 gm/ Sodium Chloride IVPB 02/10/25 15:31 Infused ONCE ONE Infusion Ketorolac Tromethamine 15 mg 02/10/25 15:01 02/10/25 15:10 Ketorolac 15 Mg/Ml Inj IVP 02/10/25 15:02 15 mg ONCE ONE Administration MDM - Skin/Abscess/Foreign Bdy MDM Narrative Medical decision making narrative: 1. Dental infection with cellulitic extension-white count normal at 10.24 although CRP elevated at 5.6. No evidence of sepsis. Patient treated with Unasyn 3 g IV while awaiting CT. CT does show 1st left maxillary molar with small fluid collection suspected abscess. Patient did not want to stay in the hospital overnight but did not think she would be able to see her dentist as she needs this tooth removed. I was able to contact self [facility] oral surgeons who will be in [place] tomorrow. I was given the number that the patient can call at [phone] hours tomorrow morning so that she can be seen tomorrow. I stressed the absolute importance of having this tooth removed. Will also start her on Augmentin 875 p.o. b.i.d. x7 days. This was given via [employer]. Patient also requested a small amount of stronger pain medication. I have given her 8 tablets of Esmond 5/325 1-2 tabs p.o. q.4-6 hours p.r.n. pain no refills. 2. Disposition -home at this time. She is declining admission. Have asked her to return for fever, vomiting, worsening swelling and worsening symptoms and she is in agreement. Medical Records Attestation: I reviewed the patient's medical records. Lab Data Attestation: I reviewed the patient's lab results. Labs: Lab Results 02/10/25 Range/Units 15:13 WBC 10.24 (4.50-11.00) K/uL RBC 4.68 (4.00-5.20) m/uL Hgb 14.6 (12.0-16.0) gm/dL Hct 44.2 (33.0-51.0) % MCV 94 (80-100) fL MCH 31 (26-34) pg MCHC 33 (32-36) gm/dL RDW Coeff of Nitin 13.0 (11.5-15.5) % Plt Count 365 (140-440) K/uL Neut % (Auto) 64.5 (42.0-72.0) % Lymph % (Auto) 22.7 (20-44) % Mcintosh % (Auto) 6.7 (0.0-11.0) % Eos % (Auto) 5.6 (0.0-7.0) % Baso % (Auto) 0.4 (0.0-3.0) % Neut # (Auto) 6.61 (1.7-7.0) K/uL Lymph # (Auto) 2.32 (0.90-2.90) K/uL Mcintosh # (Auto) 0.70 (0.00-0.90) K/UL Eos # (Auto) 0.57 H (0.00-0.50) K/uL Baso # (Auto) 0.04 (0.00-0.30) K/uL Abs Immat Gran (auto) 0.01 (0.00-0.30) K/uL Imm/Tot Granulo (auto) 0.1 % Sodium 138 (135-149) mmol/L Potassium 4.6 (3.6-5.1) mmol/L Chloride 105 (96-114) mmol/L Carbon Dioxide 20 (20-32) mmol/L Anion Gap 13 (7-15) mEq/L BUN 14 (7-30) mg/dL Creatinine 1.2 (0.5-1.5) mg/dL Estimated Creat Clear 36.47 Estimated GFR 50 ml/min Glucose 119 H (60-115) mg/dL Calcium 10.2 (8.4-10.6) mg/dL Total Bilirubin 0.4 (0.1-1.5) mg/dL AST 31 (12-35) U/L ALT 34 (4-35) U/L Alkaline Phosphatase 98 (40-150) U/L C-Reactive Protein 5.6 H (0.5-1.0) mg/dL Total Protein 7.3 (6.0-8.3) g/dL Albumin 4.5 (3.3-5.0) g/dL Imaging Data Facial CT: Attestation: I have reviewed the pertinent imaging results. Radiologist's impression: The partially visualized brain parenchyma is normal in attenuation without evidence of abnormal enhancement. There is mild left infraorbital, preseptal soft tissue swelling. Otherwise the orbits are within normal limits. There is minimal chronic mucosal thickening of the maxillary sinus. The mastoid air cells are clear. The nasopharynx is unremarkable. The fossae of Rosenmuller are clear. The oropharynx is unremarkable. The hypopharynx is clear. There is demonstration of a lucency adjacent to the left 1st maxillary molar with demonstration of a small rim enhancing fluid collection measuring 8.7 millimeters seen best on series 3, image 23 with associated maxillary soft tissue prominence. Additional evaluation of the facial soft tissues is limited due to extensive beam hardening artifact from dental amalgam. The vocal folds are nonthickened with symmetrical appearance. The thyroid gland is normal in attenuation. There is no evidence of pathologically enlarged cervical lymph node. The jugular veins are patent. The carotid arteries demonstrate no significant atherosclerotic narrowing. There is mild chronic appearing interstitial change within the bilateral upper lobes with minimal paraseptal emphysematous changes. The cervical vertebral body heights are grossly maintained with moderate multilevel degenerative disc disease. There is no significant spondylolisthesis or displaced fracture. Impression: 1. Demonstration of a small rim enhancing fluid collection adjacent to the left maxilla corresponding to a small apical lucency of the left 1st maxillary molar seen best on series 3, image 23 measuring 8.7 millimeters with associated left facial soft tissue swelling. Neck CT soft tissue: Attestation: I have reviewed the pertinent imaging results. Radiologist's impression: The partially visualized brain parenchyma is normal in attenuation without evidence of abnormal enhancement. There is mild left infraorbital, preseptal soft tissue swelling. Otherwise the orbits are within normal limits. There is minimal chronic mucosal thickening of the maxillary sinus. The mastoid air cells are clear. The nasopharynx is unremarkable. The fossae of Rosenmuller are clear. The oropharynx is unremarkable. The hypopharynx is clear. There is demonstration of a lucency adjacent to the left 1st maxillary molar with demonstration of a small rim enhancing fluid collection measuring 8.7 millimeters seen best on series 3, image 23 with associated maxillary soft tissue prominence. Additional evaluation of the facial soft tissues is limited due to extensive beam hardening artifact from dental amalgam. The vocal folds are nonthickened with symmetrical appearance. The thyroid gland is normal in attenuation. There is no evidence of pathologically enlarged cervical lymph node. The jugular veins are patent. The carotid arteries demonstrate no significant atherosclerotic narrowing. There is mild chronic appearing interstitial change within the bilateral upper lobes with minimal paraseptal emphysematous changes. The cervical vertebral body heights are grossly maintained with moderate multilevel degenerative disc disease. There is no significant spondylolisthesis or displaced fracture. Impression: 1. Demonstration of a small rim enhancing fluid collection adjacent to the left maxilla corresponding to a small apical lucency of the left 1st maxillary molar seen best on series 3, image 23 measuring 8.7 millimeters with associated left facial soft tissue swelling. Discharge Plan Discharge Clinical Impression: Dental infection Cellulitis Qualifiers: Site of cellulitis: face Qualified Code(s): L03.211 - Cellulitis of face Patient Disposition: Home, Self-Care Condition: Improved Additional Instructions: Start Augmentin tonight as your antibiotic. This was put in our [facility] machine. You will need to have this tooth pulled as soon as possible. I was able to speak to the on-call physician from [facility] [place]. They can see you tomorrow and pull your tooth. They have instructed me to tell you to call them at [phone] hours tomorrow at [phone]. Tell them you spoke to the on-call physician and that he told due to call back to get in tomorrow. Ibuprofen or norco as needed for pain ( Return to the ER for high fever, worsening symptoms and as needed. Prescriptions: No Action (DME) Dexcom G7 Exec. Creative Director Misc See Rx Instructions .Route Qty: 1 0RF Rx Instructions: As directed (DME) Dexcom G7 Sensor Device See Rx Instructions .Route Qty: 3 6RF Rx Instructions: As directed calcium carbonate-vitamin D3 600 mg-10 mcg (400 unit) capsule 1 cap PO DAILY gabapentin 600 mg tablet 600 mg PO BID lansoprazole 15 mg capsule,delayed release(DR/EC) 15 mg PO QDAY Qty: 90 3RF (DME) pen needle, diabetic [1st Tier Unifine Pentips] 31 gauge x 3/16 needle See Rx Instructions .Route Qty: 100 3RF Rx Instructions: As directed (DME) Contour Next Test Strips Strip See Rx Instructions .Route Qty: 100 3RF Rx Instructions: As directed cyclobenzaprine 10 mg tablet 10 mg PO TID PRN bupropion HCl 150 mg tablet sustained-release 12 hr 150 mg PO BID Qty: 180 3RF metformin 1,000 mg tablet 1,000 mg PO BID Qty: 180 3RF clopidogrel 75 mg tablet 75 mg PO QDAY Qty: 90 3RF nortriptyline 25 mg capsule 50 mg PO QHS Qty: 180 3RF liraglutide 0.6 mg/0.1 mL (18 mg/3 mL) pen injector 1.8 mg subcut QDAY Qty: 27 3RF lisinopril 20 mg tablet 20 mg PO QDAY Qty: 90 0RF metoprolol tartrate 25 mg tablet 25 mg PO BID Qty: 180 0RF simvastatin 40 mg tablet 40 mg PO QDAY Qty: 90 3RF Follow Up/Referrals: Nola Perez, OYSTER GROWER, PICKING TABLE WORKER [Primary Care Provider] - Stand Alone Forms: [facility] Info Instructions
--- NOTE | 2025-02-10 15:00 | CRLHL7_ITS ---
For Patients: As a result of the Century Cures Act, medical imaging exams and procedure reports are released immediately into your electronic medical record. You may view this report before your referring provider. If you have questions, please contact your health care provider. Indication: Suspect infection with dental swelling of the head neck and face Technique: Volumetric multidetector CT images of the cervical soft tissues were obtained after the administration of low osmolar intravenous contrast. 80 cc Isovue 370 low osmolar intravenous contrast Comparison: CT soft tissue neck October 07, 2024 Findings: The partially visualized brain parenchyma is normal in attenuation without evidence of abnormal enhancement. There is mild left infraorbital, preseptal soft tissue swelling. Otherwise the orbits are within normal limits. There is minimal chronic mucosal thickening of the maxillary sinus. The mastoid air cells are clear. The nasopharynx is unremarkable. The fossae of Rosenmuller are clear. The oropharynx is unremarkable. The hypopharynx is clear. There is demonstration of a lucency adjacent to the left 1st maxillary molar with demonstration of a small rim enhancing fluid collection measuring 8.7 millimeters seen best on series 3, image 23 with associated maxillary soft tissue prominence. Additional evaluation of the facial soft tissues is limited due to extensive beam hardening artifact from dental amalgam. The vocal folds are nonthickened with symmetrical appearance. The thyroid gland is normal in attenuation. There is no evidence of pathologically enlarged cervical lymph node. The jugular veins are patent. The carotid arteries demonstrate no significant atherosclerotic narrowing. There is mild chronic appearing interstitial change within the bilateral upper lobes with minimal paraseptal emphysematous changes. The cervical vertebral body heights are grossly maintained with moderate multilevel degenerative disc disease. There is no significant spondylolisthesis or displaced fracture. Impression: 1. Demonstration of a small rim enhancing fluid collection adjacent to the left maxilla corresponding to a small apical lucency of the left 1st maxillary molar seen best on series 3, image 23 measuring 8.7 millimeters with associated left facial soft tissue swelling. Please note that all CT scans at this facility use dose modulation, iterative reconstruction, and/or weight-based dosing when appropriate to reduce radiation dose to as low as reasonably achievable. Dictated by Sam Aguilera MD @ 02/10/2025 4:39:32 PM (Electronically Signed)
--- NOTE | 2025-02-10 15:00 | CRLHL7_ITS ---
For Patients: As a result of the Century Cures Act, medical imaging exams and procedure reports are released immediately into your electronic medical record. You may view this report before your referring provider. If you have questions, please contact your health care provider. Indication: Suspect dental infection with swelling of the neck and face Technique: Volumetric multidetector CT images of the facial bones were obtained without the administration of IV contrast. Comparison: None available. Findings: The partially visualized brain is normal in attenuation without evidence of midline shift or fluid collection. There is moderate chronic polypoid mucosal thickening within the paranasal sinuses. There is mild left infraorbital, preseptal soft tissue swelling. Otherwise the orbits and their contents are within normal limits. The zygomatic arches are grossly intact. There is demonstration of extensive dental caries and apical root lucencies with focal cortical breakthrough of the left 1st maxillary molar seen best on series 3, image 70. There is associated mild pre maxillary soft tissue swelling. The pterygoid plates are grossly intact. The nasal bones and anterior nasal spine are intact without displaced fracture. The mandible is intact with additional extensive apical root lucencies. The partially visualized cervical spine is grossly intact without displaced fracture. Impression: Demonstration of extensive periodontal disease with moderate apical root lucencies throughout the maxilla and mandible with demonstration of focal breakthrough of maxillary cortex of the left 1st maxillary molar seen on series 3, image 70 with mild pre maxillary and infraorbital soft tissue swelling. Please note that all CT scans at this facility use dose modulation, iterative reconstruction, and/or weight-based dosing when appropriate to reduce radiation dose to as low as reasonably achievable. Dictated by Sam Aguilera MD @ 02/10/2025 4:46:26 PM (Electronically Signed)
[2025-02-10] MEDS: KETOROLAC 15 MG/ML inj IVP (15:10)
[2025-02-10 15:19] LABS: Basophils Absolute Auto 0.04 K/uL (0.00-0.30); Basophils Percent Auto 0.4 % (0.0-3.0); Eosinophils Absolute Auto 0.57 K/uL (0.00-0.50); Eosinophils Percent Auto 5.6 % (0.0-7.0); Hematocrit 44.2 % (33.0-51.0); Hemoglobin* 14.6 gm/dL (12.0-16.0); Immature Granulocytes Abs Auto 0.01 K/uL (0.00-0.30); Immature Granulocytes Pct Auto 0.1 %; Lymphocytes Absolute Auto 2.32 K/uL (0.90-2.90); Lymphocytes Percent Auto 22.7 % (20-44); Mean Corpuscular HGB Conc 33 gm/dL (32-36); Mean Corpuscular Hemoglobin 31 pg (26-34); Mean Corpuscular Volume 94 fL (80-100); Monocytes Percent Auto 6.7 % (0.0-11.0); Neutrophils Absolute Auto 6.61 K/uL (1.7-7.0); Neutrophils Percent Auto 64.5 % (42.0-72.0); Platelet Count* 365 K/uL (140-440); Red Blood Count 4.68 m/uL (4.00-5.20); White Blood Count* 10.24 K/uL (4.50-11.00)
[2025-02-10 15:22] LABS: Slide Review Reflex No
[2025-02-10 15:33] LABS: Albumin* 4.5 g/dL (3.3-5.0); Chloride* 105 mmol/L (96-114); Potassium* 4.6 mmol/L (3.6-5.1); Sodium* 138 mmol/L (135-149)
[2025-02-10 15:35] LABS: Alanine Aminotransferase* 34 U/L (4-35); Aspartate Amino Transferase* 31 U/L (12-35); Blood Urea Nitrogen* 14 mg/dL (7-30); Creatinine* 1.2 mg/dL (0.5-1.5); Est. Creatinine Clearance* 36.47; Estimated Glomerular Filt Rate 50 ml/min
[2025-02-10 15:36] LABS: Alkaline Phosphatase* 98 U/L (40-150); Anion Gap 13 mEq/L (7-15); Bilirubin Total* 0.4 mg/dL (0.1-1.5); Calcium* 10.2 mg/dL (8.4-10.6); Carbon Dioxide* 20 mmol/L (20-32); Glucose* 119 mg/dL (60-115); Total Protein* 7.3 g/dL (6.0-8.3)
[2025-02-10] MEDS: AMPICILLIN/SULBACTAM 3 GM in 0.9 % SODIUM CHLORIDE Mini-bag 100 ML IVPB (15:37)
[2025-02-10 15:39] LABS: C Reactive Protein* 5.6 mg/dL (0.5-1.0)
[2025-02-10 16:38] VITALS: BP 147/94; PULSE 94; RESP 18; TEMP 36.3; O2SAT 96
--- OUTSIDE RECORDS SUMMARY | 2025-02-10 20:43 | XMS_ITS | Encounter Summary ---
Author Organization [facility] er Address [address] [place] [address] Care Team Providers Care Converting Technician Name Role Phone Nola Perez APRN, CHIEF OF SURGERY Primary Care Provi daniel Reason for Visit * Reason Comments Med Refill Encounter Details Date Type Department Care Team (Late st Contact Info) Description 04/10/2022 Refill [place] [address] [place] [address] Robin Mason MD Encounter for smoking cessation counseling Social History Tobacco Use Types Packs/Day Years Used Date Smoking Tobacco: Every Day Smokeless Tobacco: Never Alcohol Use Standard Drinks/Week Comments No 0 (1 standard drink = 0.6 oz pur e alcohol) AUDIT-C Answer Date Recorded Q1: How often do you have a drink containing alc ohol? Never 09/01/2020 Average Number of Drinks Not on file 020 Frequency of Binge Drinking Not on file 08/07 Overall Financial Resource Strain (CARDIA) Answe r Date Recorded How hard is it for you to pa y for the very basics like food, housing, medical care, and heating? Not hard at all 09/01/2020 PHQ-2 Answer Date Recorded PHQ-9 Total Score 0 12/28/2021 Hunger Vital Sign Answer Date Recorded Within the past 12 months, y ou worried that your food would run out before you got the money to buy more. Never true 09/01/20 20 Within the past 12 months, t he food you bought just didn't last and you didn't have money to get more. Never true 09/01/2020 PRAPARE - Transportation Answer Date Re corded In the past 12 months, has l ack of transportation kept you from medical appointments or from getting medications? No 08/07 In the past 12 months, has l ack of transportation kept you from meetings, work, or from getting things needed for daily living? 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 buPROPion (WELLBUTRIN) 75 MG tablet [Pharmacy Med Name: BUPROPION HCL 75MG TABS] 60 tablet 2 Sig: TAKE ONE TABLET BY MOUTH TWICE A DAY #180, 1 refill e-prescribed to requesting pharmacy, [facility] - [place], [place] - [address] [place] [address], E-Prescribing Status: Receipt confirmed by pharmacy (03/11/2022 ??8:47 AM CDT) Early request. New rx due 06/10/2022. Pharmacy notified. documented in this encounter Plan of Treatment Not on file documented as of this encounter Visit Diagnoses Diagnosis Encounter for smoking cessation counseling documented in this encounter Care Teams Converting Technician Relationship Specialty Start Date End Date Nola Perez, GRITTING MACHINE OPERATOR, CHIEF OF SURGERY [address] [place] [address] PCP - General Family Medicine 08/24/24 documented as of this encounter
--- OUTSIDE RECORDS SUMMARY | 2025-02-10 20:43 | XMS_ITS | Encounter Summary ---
Author Organization [facility] er Address [address] [place] [address] Care Team Providers Care Stull Hewer Name Role Phone Nola Perez APRN, ECOLOGIST TECHNICIAN Primary Care Provi daniel Reason for Visit * Reason Comments Med Refill Encounter Details Date Type Department Care Team (Late st Contact Info) Description 11/04/2020 Refill [place] [address] [place] [address] Robin Mason MD Depression, unspecified depression type Social History Tobacco Use Types Packs/Day Years [...] PHQ-2 Answer Date Recorded PHQ-9 Total Score 2 09/01/2020 Hunger Vital Sign Answer Date Recorded Within [...] encounter Miscellaneous Notes * Telephone Encounter - Lorie Gamez MA - 11/07/2020 10:15 AM COLLECTION AGENT Discontinue Date: 08/18/2020 15:22 Discontinue User: Robin Mason MD Discontinue Reason: Therapy Completed ECTION AGENT documented in this encounter Plan of Treatment Not on file documented as of this encounter Visit Diagnoses Diagnosis Depression, unspecified depression type documented in this encounter Care Teams Stull Hewer Relationship Specialty Start Date End Date Nola Perez, MEAT PRESS OPERATOR, ECOLOGIST TECHNICIAN [address] [place] [address] PCP - General Family Medicine 08/24/24 documented as of this encounter
--- OUTSIDE RECORDS SUMMARY | 2025-02-10 20:43 | XMS_ITS | Clinical Summary ---
Author Organization [facility] Address [address] [place] [address] Care Team Providers Care Veneer Sample Maker Name Role Phone Emeka Hollingsworth MD Unavailable [phone] Nola Perez NP Primary Care Provider Fanny vailable Allergies Active Allergy Reactions Criticality Noted Date Comments Azithromycin *Unknown 05/21/2011 Medications aspirin enteric coated 81 mg tablet Take 1 tablet by mouth once daily with a meal. 0 2 Active ibuprofen (ADVIL; MOTRIN) 200 mg cap Take 1 capsule by mouth 4 times daily if needed. 0 3 Active aspirin-acetam inophen-caffei ne, 250-250-65 mg, (EXCEDRIN) 250-250-65 mg tablet Take 1 tablet by mouth every 6 hours if needed for Headache. Max acetaminophen dose: 4000mg in 24 hrs. 0 3 Active lisinopril (PRINIVIL; ZESTRIL) 10 mg tablet Take 1 tablet by mouth once daily. 30 tablet 10 4 Active multivitamin (MVI) tablet Take 1 tablet by mouth once daily. 0 4 Active gabapentin (NEURONTIN) 300 mg capsule Take 3 capsules by mouth 4 times daily. 0 6 Active nortriptyline (PAMELOR) 25 mg capsule Take 2-3 caps by mouth at bedtime 0 6 Active simvastatin (ZOCOR) 40 mg tablet Take 0.5 tablets by mouth at bedtime. 0 6 Active metoprolol tartrate (LOPRESSOR) 25 mg tablet Take 1 tablet by mouth 2 times daily. Dose unknown 0 7 Active clopidogrel (PLAVIX) 75 mg tabletIndicati ons:Coronary artery disease due to lipid rich plaque TAKE ONE TABLET BY MOUTH EVERY DAY 90 tablet 9 Active nitroglycerin (NITROSTAT) 0.4 mg sublingual tabletIndicati ons:CAD in [place] artery Place 1 tablet under the tongue every 5 minutes if needed for Chest Pain. 25 tablet 9 Active sertraline (ZOLOFT) 50 mg tablet 25 mg daily x 10 days and then 50 mg daily thereafter 9 Active metFORMIN (GLUCOPHAGE) 500 mg tablet Take 500 mg by mouth 2 times daily with meals. 9 Active lansoprazole (PREVACID) 15 mg capsule Take 1 Cap by mouth. Active cholecalcifero l (VITAMIN D-3) 400 unit tablet Take 500 Units by mouth. Active calcium carbonate (OS-FREDY 500) 500 mg calcium (1,250 mg) tablet Take 1,260 mg by mouth. Active Active Problems Problem Noted Date Diagnosed Date NSTEMI (non-ST elevated myocardial infarction) 1 Nicotine use disorder 07/13/2012 AUBREE (obstructive sleep apnea) 07/13/2012 CAD in [place] artery 07/25/2011 Overview (07/25/2011): s/p inferior CT 05/2011; PCi with SIRISHA to LCx ACP (advance care planning) 06/05/2011 Overview (06/05/2011): Patient has identified Health Care Agent(s): Yes Add Health Care Agents: Yes Health Care Agent(s): Chosen Primary Health Care Agent: Wesley Michaud Relationship: spouse Cell; [phone] Patient has Advance Care Plan Documents (Health Care Directive, POLST): No, declined HCD be mailed / declined ACP. Patient has identified Specific Treatment Preferences: No Specific limits to treatment preferences NOT identified: ASSUME FULL TREATMENT. Hematoma following percutane ous transluminal coronary angioplasty 05/23/2011 Overview (07/25/2011): Spontaneous anterior extraperitoneal hematoma Acute myocardial infarction of inferior wall, initial episode of care 05/21/2011 HTN (hypertension) 05/21/2011 Family History Medical History Relation Name Comments Heart Disease Mother Relation Name Status Comments Mother Social History Tobacco Use Types Packs/Day Years Used Date Smoking Tobacco: Every Day Cigarettes 1 35 Started: 06/27/2014 Smokeless Tobacco: Never Tobacco Cessation:Ready to Q uit: No; Counseling Given: Yes Comments:1 pack daily started smoking 6 months after quting Alcohol Use Standard Drinks/Week Comments No 0 (1 standard drink = 0.6 oz pur e alcohol) Comments No Sex and Gender Information Value Date Recorded Sex Assigned at Not on file Legal Sex Female 8:12 AM TRAFFIC RATE CLERK Gender Identity Not on file Sexual Orientation Not on file Occupation Industry Job Start Date Job End Date [employer] Not on file Not on file Not on file Obstetrics History Last Filed Vital Signs Vital Sign Reading Time Taken Comments Blood Pressure 104/64 09/16/2019 3:16 PM TRAFFIC RATE CLERK Pulse 80 09/16/2019 3:16 PM TRAFFIC RATE CLERK Temperature 36.9 C (98.5 F) 07/15/2012 11:04 AM CDT Respiratory Rate 15 09/16/2019 3:16 PM TRAFFIC RATE CLERK Oxygen Saturation 98% 09/16/2019 3:16 PM TRAFFIC RATE CLERK Inhaled Oxygen Concentration - - Weight 89.4 kg (197 lb) 09/16/2019 3:16 PM TRAFFIC RATE CLERK Height 157.5 cm (5' 2) 09/16/2019 3:16 PM TRAFFIC RATE CLERK Body Mass Index 36.03 09/16/2019 3:16 PM TRAFFIC RATE CLERK Plan of Treatment Health Maintenance Due Date Last Done Comments Tdap 1969 Depression screening for age 12+ 1970 Hepatitis C screening for ag e 18-79 1976 Tetanus booster 1978 Colonoscopy through age 75 2003 Mammogram for age 45-75 2003 Pneumococcal series for age 50+ (1 of 1 - PCV) 2008 Zoster (shingles) series for age 50+ (1 of 2) 2008 Lipids for age 45-75 05/24/2016 05/24/2011 BMI (ht and wt on same day) for age 18+ 09/16/2020 09/16/2019, 05/14/2018, 03/10/2018, Additional history exists DEXA/DXA scan for age 65+ 2023 COVID-19 vaccine series (2023- season) 2024 Influenza Vaccine (Season Ended) 2025 RSV vaccine for adults or (1 - 1-dose 75+ series) 2033 Procedures Procedure Name Priority Date/Time Associated Diagnosis Comments LIPID PANEL Early AM 05/24/2011 5:10 AM CDT from Last 3 Months or Most Recently Relevant to Health Maintenance Results * (ABNORMAL) LIPID PANEL (05/24/2011 5:10 AM CDT) CHOLESTEROL,TOTAL 109(L) 110 - 199 mg/dL [facility] TRIGLYCERIDES 80 40 - 149 mg/dL [facility] HDL CHOLESTEROL 36(L) >40 mg/dL [facility] CHOL/HDL RATIO 3.03 <4.51 [facility] LDL CHOLESTEROL 57 <131 mg/dL [facility] PATIENT STATUS Fasting [facility] Blood specimen (specimen) BLOOD SPECIMEN / Unknown 05/24/2011 5:10 AM CDT 05/23/2011 10:00 PM CDT Emeka Hollingsworth MD CHEMISTRY Final R esult [facility] [place]IP [id number] [place] [id number] from Last 3 Months or Most Recently Relevant to Health Maintenance Insurance [facility] Advance Directives * Full Code (Latest Code Status on File) Date Activated Date Inactivated Comments 07/13/2012 12:18 PM 07/15/2012 7:26 PM * Full Code Date Activated Date Inactivated Comments 05/21/2011 11:26 AM 05/24/2011 9:16 PM Care Teams Veneer Sample Maker Relationship Specialty Start Date End Date Nola Perez NP [address] [place] [address] PCP - General Emergency Medicine 04/04/14 Emeka Hollingsworth MD Consulting Physician Cardiovascular Disease 02/24/13
--- OUTSIDE RECORDS SUMMARY | 2025-02-10 20:43 | XMS_ITS | Encounter Summary ---
Author Organization [facility] er Address [address] [place] [address] Care Team Providers Care Head Correction Officer Name Role Phone Nola Perez APRN, POLICY ADVISER Primary Care Provi daniel Reason for Visit * Reason Comments Med Refill Encounter Details Date Type Department Care Team (Late st Contact Info) Description 08/05/2022 Refill [place] [address] [place] [address] Robin Mason MD History of smoking 30 or more pack years (Primary Dx); Coronary artery disease without angina pectoris, unspecified vessel or lesion type, unspecified whether [place] or transplanted heart; Type 2 diabetes mellitus without complication, without long-term current use of insulin (HCC) Social History Tobacco Use Types Packs/Day Years [...] encounter Miscellaneous Notes * Telephone Encounter - Mena Levy RN - 08/05/2022 3:53 PM CDT Patient called. Mailbox is full. Will attempt later. * Telephone Encounter - Claudia Cheema LPN - 08/05/2022 2:21 PM CDT Patient is due for 6 month recheck Appointment with Harpreet arana. PSR: Please contact patient to assist with scheduling. Upcoming appointment with provider: Visit date not found Last visit in provider department: 12/28/2021 Last visit requested medication was discussed: 12/28/2021 annual exam Per note on 12/28/2021 return in about 6 months time for next A1c at which time will also discussedwith her referral to cardiology for a general review. Last Rx: metoprolol tartrate (LOPRESSOR) 25 MG 08/18/2021 # 180, 3 refills Requested Prescriptions Pending Prescriptions Disp Refills ??? metoprolol tartrate (LOPRESSOR) 25 MG tablet [Pharmacy Med Name: METOPROLOL TARTRATE 25MG TABS]180 tablet 3 Sig: TAKE ONE TABLET BY MOUTH TWICE A DAY Labs: Component Latest Ref Rng & Units 08/15/2021 Sodium 135 - 145 mEq/L 137 Potassium 3.5 - 5.1 mEq/L 4.9 Chloride 98 - 107 mEq/L 101 CO2 22 - 29 mmol/L 26 Creatinine 0.4 - 1.2 mg/dL 0.8 BUN 5 - 25 mg/dL 15 Glucose 70 - 100 mg/dL 116 (H) Calcium, Total,S 8.4 - 10.2 mg/dL 9.4 No pending labs Vitals: BP Readings from Last 2 Encounters: 12/28/21 128/68 09/01/20 128/78 documented in this encounter Plan of Treatment Not on file documented as of this encounter Results * (ABNORMAL) Hemoglobin A1c (08/08/2022 9:06 AM CDT) Hemoglobin A1C 6.3(H) 4.0 - 5.6 % A1C 08/08/2022 1:08 PM CDT [facility] Comment: Reference Range 4.0-5.6% is for non- adults >=18 yrs <5.6% Non-Diabetic 5.7-6.4% Increased risk of Diabetes >=6.5% Indicative of Diabetes <7.0% ADA goal for glycemic control Methodology may not detect all hemoglobin variants which can affect A1c results. Method certified by National Glycohemoglobin Standardization Program. Blood 08/08/2022 9:06 AM CDT 08/08/2022 12:34 PM CDT us DAmber Mason MD LAB BLOOD ORDERABLES Final R esult [facility] [address] [place] [address] documented in this encounter Visit Diagnoses Diagnosis History of smoking 30 or more pack years- Primary Coronary artery disease without angina pectoris, unspecified vessel or lesion type, unspecified whether [place] or transplanted heart Type 2 diabetes mellitus without complication, without long-term current use of insulin (HCC) documented in this encounter Care Teams Head Correction Officer Relationship Specialty Start Date End Date Nola Perez, PURIFICATION SUPERVISOR, POLICY ADVISER [address] [place] [address] PCP - General Family Medicine 08/24/24 documented as of this encounter
--- OUTSIDE RECORDS SUMMARY | 2025-02-10 20:43 | XMS_ITS | Encounter Summary ---
Author Organization [facility] er Address [address] [place] [address] Care Team Providers Care Field Supervisor Seed Production Name Role Phone Nola Perez APRN, HOWARD Primary Care Provi daniel Reason for Visit * Reason Onset Date Comments Med Refill 07/30/2018 Encounter Details Date Type Department Care Team (Late st Contact Info) Description 07/30/2018 Refill [place] [address] [place] [address] Nola Perez APRN, SOLUTIONS OPERATOR [address] [address] Hyperlipidemia, unspecified hyperlipidemia type (Primary Dx) Social History Tobacco Use Types Packs/Day Years Used Date Smoking Tobacco: Never Assessed Comments Unknown Sex and Gender Information Value Date Recorded Sex Assigned at Not on file Legal Sex Female 8:08 PM CDT Gender Identity Not on file Sexual Orientation Not on file documented as of this encounter Miscellaneous Notes * Telephone Encounter - Ching Brantley MA - 07/30/2018 10:07 AM CDT I have pended a medication refill for your review documented in this encounter Plan of Treatment Not on file documented as of this encounter Visit Diagnoses Diagnosis Hyperlipidemia, unspecified hyperlipidemia type- Primary documented in this encounter Care Teams Field Supervisor Seed Production Relationship Specialty Start Date End Date Nola Perez APRN, SOLUTIONS OPERATOR [address] [facility] [place] [address] PCP - General Family Medicine 08/24/24 documented as of this encounter
--- OUTSIDE RECORDS SUMMARY | 2025-02-10 20:44 | XMS_ITS | Encounter Summary ---
Author Organization [facility] er Address [address] [place] [address] Care Team Providers Care Procedural Nurse Name Role Phone Nola Perez APRN, EMPLOYMENT CONSULTANT Primary Care Provi daniel Reason for Visit * Reason Comments Med Refill Encounter Details Date Type Department Care Team (Late st Contact Info) Description 08/19/2024 Refill [place] [address] [place] [address] Jenn Enrique OFFICE TECHNOLOGY PROFESSOR [address] [place] [address] Coronary artery disease without angina pectoris, unspecified vessel or lesion type, unspecified whether [place] or transplanted heart Social History Tobacco Use Types Packs/Day Years Used Date Smoking Tobacco: Every Day Cigarettes Smokeless Tobacco: Never Alcohol Use Standard Drinks/Week [...] Answer Date Recorded PHQ-9 Total Score 0 01/01/2023 Hunger Vital Sign Answer Date Recorded Within [...] encounter Miscellaneous Notes * Telephone Encounter - Georgia Meneses LPN - 08/24/2024 10:07 AM CST Noted [employer] G[employer]F [employer]RSE * Telephone Encounter - Nikky Ibarra - 08/24/2024 8:35 AM CST Contacted to schedule re-check, med review appt. Has taken cares to Nola Perez in [place]. [employer] GOLF COURSE * Telephone Encounter - Sultana Alcantar MA - 08/23/2024 8:15 AM CST Patient is due for an appointment (01/02/2024). PSR: Please contact patient to assist with scheduling. Upcoming appointment with provider: None Last visit in provider department: 01/01/2023 Last visit requested medication was discussed: 01/01/2023 Last Rx: 09/01/2023- 90 with 3 refills Requested Prescriptions Pending Prescriptions Disp Refills clopidogrel (PLAVIX) 75 MG tablet [Pharmacy Med Name: CLOPIDOGREL BISULFATE 75MG TABS] 90 tablet 3 Sig: TAKE 1 TABLET BY MOUTH EVERY DAY Labs: Outdated Vitals: BP Readings from Last 2 Encounters: 01/01/23 139/89 09/03/22 134/80 Last Controlled Substance Agreement (CSA): Last Random Urine Drug Screen (RUDS): [employer]ER GOLF COURSE documented in this encounter Plan of Treatment Not on file documented as of this encounter Visit Diagnoses Diagnosis Coronary artery disease without angina pectoris, unspecified vessel or lesion type, unspecified whether [place] or transplanted heart documented in this encounter Care Teams Procedural Nurse Relationship Specialty Start Date End Date Nola Perez, OFFICE TECHNOLOGY PROFESSOR, EMPLOYMENT CONSULTANT [address] [place] [address] PCP - General Family Medicine 08/24/24 documented as of this encounter
--- OUTSIDE RECORDS SUMMARY | 2025-02-10 20:44 | XMS_ITS | Encounter Summary ---
Author Organization [facility] er Address [address] [place] [address] Care Team Providers Care Timber Deadener Name Role Phone Nola Perez APRN, HOWARD Primary Care Provi daniel Reason for Visit * Reason Onset Date Comments Med Refill Med Refill 06/03/2019 Med Refill 06/04/2019 Encounter Details Date Type Department Care Team (Late st Contact Info) Description 05/13/2019 Refill [place] [address] [place] [address] Nola Perez APRN, ARCHITECT INTERNSHIP [address] [id number] Peripheral polyneuropathy Social History Tobacco Use Types Packs/Day Years Used Date Smoking Tobacco: Every Day Smokeless Tobacco: Never Alcohol Use Standard Drinks/Week Comments No 0 (1 standard drink = 0.6 oz pur e alcohol) AUDIT-C Answer Date Recorded Frequency of Alcohol Consumption Never 08/24/2018 Average Number of Drinks Not on file 018 Frequency of Binge Drinking Not on file 08/06 PHQ-2 Answer Date Recorded PHQ-2 Score 0 02/03/2019 Comments Unknown Sex and Gender Information Value Date Recorded Sex Assigned at Not on file Legal Sex Female 8:08 PM CDT Gender Identity Not on file Sexual Orientation Not on file documented as of this encounter Miscellaneous Notes * Telephone Encounter - Lisbeth Mcdonough LPN - 05/17/2019 11:49 AM CDT Faxed to Pharmacy on 02/25/19 #540 for 90 days with 3 refills Pharmacy was called and they did receive Rx . Sent in Error documented in this encounter Plan of Treatment Not on file documented as of this encounter Visit Diagnoses Diagnosis Peripheral polyneuropathy documented in this encounter Care Teams Timber Deadener Relationship Specialty Start Date End Date Nola Perez APRN, ARCHITECT INTERNSHIP [address] [place] [address] PCP - General Family Medicine 08/24/24 documented as of this encounter
--- OUTSIDE RECORDS SUMMARY | 2025-02-10 20:44 | XMS_ITS | Clinical Summary ---
Author Organization [facility] Address [address] [place] [id number] Care Team Providers Care Pattern Cutter Name Role Phone Elsewhere, Pcp Primary Care Provider Unavailabl e Source Comments Patient records contain information from all sites at [facility]. For routine questions regarding patient records, call [phone] during business hours, M-F 8:00 AM - 5:00 PM Central Time. Record requests for emergency care only can be directed to [phone] at any time.[facility] Allergies Active Allergy Reactions Criticality Noted Date Comments Azithromycin Nausea And Vomiting, GI intolerance High 05/03/2010 Nausea & Vomiting Egg Yolk GI intolerance 06/28/2009 Medications aspirin 81 mg chewable tablet Chew 1 tablet daily. Active calcium carbonate (OS-FREDY) 1,250 mg (500 mg calcium) tablet Take 1,260 mg of calcium by mouth daily. Active clopidogrel (PLAVIX) 75 mg tablet Take 75 mg by mouth daily. 8 Active gabapentin (NEURONTIN) 600 mg tablet Take 1,200 mg by mouth. Takes 3 tablets, 3 times day 9 Active ibuprofen (ADVIL,MOTRIN) 200 mg capsule Take 200 mg by mouth as needed. 3 Active lisinopril (PRINIVIL,ZESTR IL) 10 mg tablet Take 10 mg by mouth daily. 4 Active lansoprazole (PREVACID) [address] capsule Take 1 capsule by mouth daily. Active metFORMIN (GLUCOPHAGE) 500 mg tablet Take 500 mg by mouth 2 (two) times a day. 9 Active metoprolol tartrate (LOPRESSOR) 25 mg tablet Take 25 mg by mouth 2 (two) times a day. 7 Active multivitamin tablet Take 1 tablet by mouth daily. 50 plus 4 Active nitroglycerin (NITROSTAT) 0.[address] 0.4 mg under the tongue. 8 Active nortriptyline (PAMELOR) 25 mg capsule Take 100 mg by mouth 4 (four) times a day. 3 -4 at bedtime 6 Active simvastatin (ZOCOR) 40 mg tablet Take 20 mg by mouth. Takes 20 mg 1/2 tablet 6 Active cholecalciferol (cholecalcifero l) 400 Unit tablet Take 500 Units by mouth daily. Active triamcinolone (KENALOG) 0.1 % creamIndication s:Stasis Dermatitis Lower Extremity Bilateral Apply 1 application topically 2 (two) times a day as needed (Rash on legs). 45 g 3 9 Active gabapentin (NEURONTIN) 600 mg tablet TAKE TWO TABLETS BY MOUTH THREE TIMES A DAY 9 Active multivitamin (THERAGRAN) tablet Take 1 tablet by mouth. 4 Active cholecalciferol , vitamin D3, 400 unit tablet,chewable Chew 500 Units. Active nortriptyline (PAMELOR) 25 mg capsule Take 100 mg by mouth. 8 Active sertraline (ZOLOFT) 50 mg tablet 25 mg daily x 10 days and then 50 mg daily thereafter 9 Active buPROPion (WELLBUTRIN) 75 mg tablet Take 1 tablet by mouth 2 (two) times a day. 4 Active dulaglutide (TRULICITY) 0.75 mg/0.5 mL injection Inject 0.75 mg ONCE weekly subcutaneous. 3 Active glipiZIDE (GLUCOTROL) 5 mg tablet Take 1/2 tab twice a day for diabetes 3 Active Active Problems Problem Noted Date Diagnosed Date Radiculopathy Lumbar 03/11/2024 Spinal Stenosis Lumbar Regio n Without Neurogenic Claudication 03/11/2024 Heart Failure NOS 03/22/2014 Overview (02/25/2017): CHF NOS Myocardial Infarction Acute 01/27/2014 Overview (02/25/2017): DC Acute NOS One in 05/2011 another in 07/2012 Coronary Artery Disease (Unspecified) 11/25/2011 Overview (02/25/2017): Coronary artery disease (CAD) Hypertension Essential Benign 05/28/2011 Overview (02/25/2017): Benign hypertension Immunizations Immunization Administration Dates Next Due MMR 10/10/1998 Td, (Adult) Unspecified 10/24/1997 Family History Medical History Relation Name Comments Coronary artery disease Mother Quad ruple bypass age 60 Relation Name Status Comments Mother Social History Tobacco Use Types Packs/Day Years Used Date Smoking Tobacco: Former Tobacco Cessation:Counseling Given: Not Answered Social Connection and Isolat ion Panel [NHANES] Answer Date Recorded Frequency of Communication w ith Friends and Family More than three times a week 04/05/2019 Frequency of Social Gatherin gs with Friends and Family Never 04/05/2019 Attends Gnosticism Services Never 04/05 Active Member of Clubs or Organizations No 04/05/2019 Attends Club or Organization Meetings Never 04/05/2019 Marital Status 04/05/2019 AUDIT-C Answer Date Recorded Frequency of Alcohol Consumption Monthly or less 04/05/2019 Average Number of Drinks 1 or 2 019 Frequency of Binge Drinking Never 10/2018 Overall Financial Resource Strain (CARDIA) Answe r Date Recorded Difficulty of Paying Living Expenses Not very peralta rd 04/05/2019 [facility] - Occupational Stress Questionnaire Answer Date Recorded Feeling of Stress To some extent 04/05/2019 Exercise Vital Sign Answer Date Recorde d Days of Exercise per Week Patient declined 04/05 Minutes of Exercise per Session 30 min 04/05/2019 Hunger Vital Sign Answer Date Recorded Worried About Running Out of Food in the Last Ye ar Never true 04/05/2019 Ran Out of Food in the Last Year Sometimes true 04/05/2019 PRAPARE - Transportation Answer Date Re corded Lack of Transportation (Medical) No 04/05/2019 Lack of Transportation (Non-Medical) Not on file 04/05/2019 Nutrition Answer Date Recorded Nutrition: EVOO Fat Source 11 07/03 Nutrition: Servings of Fruits/Vegetables per Day 2-3 07/03/2020 Dental Answer Date Recorded Dental: Regular Dentist Unknown 12/06/19 21 Education Answer Date Recorded What is the highest level of school you have completed or the highest degree you have received? Some college, no degree 04/05/2019 Comments Unknown Sex and Gender Information Value Date Recorded Sex Assigned at Not on file Legal Sex Female 5:56 PM SUBASSEMBLIES WIRER Gender Identity Not on file Sexual Orientation Not on file Last Filed Vital Signs Vital Sign Reading Time Taken Comments Blood Pressure 131/83 04/05/2019 12:43 PM CDT Pulse 81 04/05/2019 12:43 PM CDT Temperature - - Respiratory Rate 16 03/14/2014 7:30 AM CDT Oxygen Saturation - - Inhaled Oxygen Concentration - - Weight 88.5 kg (195 lb 1.7 oz) 04/05/2019 12:41 PM CDT Height 157.9 cm (5' 2.17) 04/05/2019 12:41 PM C DT Body Mass Index 35.5 04/05/2019 12:41 PM CDT Plan of Treatment Health Maintenance Due Date Last Done Comments CT Colonography 1958 Cologuard 1960 FIT 1958 Hepatitis C Screening 1960 Office Visit for Blood Pressure Check / Re-check 1958 Pneumococcal vaccine (50+ years) (1 of 2 - PCV) 1977 Zoster Vaccines (1 of 2) 2008 Mammogram 09/08/2020 09/08/2019, 01/2019, 08/31/2018, Additional history exists Creatinine Level (Kidney Function Test) 01/02/2024 01/01/2023, 08/15/2021, 03/28/2020, Additional history exists Potassium Level 01/02/2024 01/01/2023, 08/06, 03/28/2020, Additional history exists Sodium Level 01/02/2024 01/01/2023, 08/06, 03/28/2020, Additional history exists Colonoscopy 02/10/2024 02/09/2014 Colorectal Cancer Screening 02/10/2024 COVID-19 Vaccine ( season) 2024 09/14/2021, 01/30/2021, 01/09/2021 Influenza Vaccine (#1) 2024 0, 08/11/2014, 07/20/2012 DTaP,Tdap,and Td Vaccines (4 - Td or Tdap) 08/11/2024 08/11/2014, 02/11/2013, 02/19/2007, Additional history exists Depression Screening (Annual PHQ-2) 10/06/2024 Fall Risk Screen (Annual) 10/06/2024 Fasting Glucose for Diabetes Screening 09/09/2026 09/09/2023, 01/01/2023, 08/08/2022, Additional history exists Lipid (Cholesterol) Screening 01/02/2028 01/01/2023, 08/15/2021, 03/28/2020, Additional history exists Cervical/Vaginal Cancer Screening Discontinued 08/30/2019 IPV Vaccines Aged Out No longer eligi ble based on patient's age to complete this topic Procedures Procedure Name Priority Date/Time Associated Diagnosis Comments BI BREAST SCREENING BILATERAL RAD - Routine (most inpatients and all outpatients) 09/08/2019 11:23 AM SUBASSEMBLIES WIRER Screening Mammogram Breast Cancer HEMOGLOBIN A1C, B Routine 05/07/2018 COMPREHENSIVE METABOLIC PANEL, S/P Routine 03/13/2014 7:20 AM CDT LIPID PANEL, S Routine 02/19/2013 10:10 AM CDT from Last 3 Months or Most Recently Relevant to Health Maintenance Results * BI Breast Screening Bilateral (09/08/2019 11:23 AM SUBASSEMBLIES WIRER) Anatomical Region Laterality Modality Breast, Breast Imaging RST L OS, Breast Imaging ARZ LOS, Breast Imaging FLA LOS Bilateral Mammography 09/08/2019 12:3 9 PM SUBASSEMBLIES WIRER Impressions 09/08/2019 12:40 PM SUBASSEMBLIES WIRER Negative. RECOMMENDATION: Annual Screening Mammogram ASSESSMENT: BI-RADS: 1: Negative. Narrative 09/08/2019 12:40 PM SUBASSEMBLIES WIRER EXAM: BI BREAST SCREENING BILATERAL Current study was evaluated with a Computer Aided Detection (CAD) system. INDICATION: Screening mammogram. COMPARISON: Prior exam(s) were available and reviewed for comparison. DENSITY: a. The breast(s) are almost entirely fatty. FINDINGS: No mammographic findings of malignancy. Right breast biopsy marking clip. Procedure Note Blaine Fitzpatrick M.D. - 09/08/2019 EXAM: BI BREAST SCREENING BILATERAL Current study was evaluated with a Computer Aided Detection (CAD) system. INDICATION: Screening mammogram. COMPARISON: Prior exam(s) were available and reviewed for comparison. DENSITY: a. The breast(s) are almost entirely fatty. FINDINGS: No mammographic findings of malignancy. Right breast biopsymarking clip. IMPRESSION: Negative. RECOMMENDATION: Annual Screening Mammogram ASSESSMENT: BI-RADS: 1: Negative. Nola Perez C.N.P. IMG BI PROCEDURES Yaquelin l Result * (ABNORMAL) Hemoglobin A1c (05/07/2018) Hemoglobin A1c, B 6.6(A) 4.0 - 6.0 EXTERNAL NON-INTERFACED LAB Blood (Blood, Venous) us Referring Provider External LAB BLOOD ADD-ON Fin al Result EXTERNAL NON-INTERFACED LAB [address] [place] [address] * (ABNORMAL) CMP (Comprehensive Metabolic Panel) (03/13/2014 7:20 AM CDT) Anion Gap 12 10 - 20 MMOLL POWERCHART Alkaline Phosphatase, S 105 41 - 108 UL POWERCHART Alanine Amniotransferase, LD 121(H) 15 - 37 UL POWERCHART Aspartate Aminotransferase (AST), S 68(H) 12 - 31 UL POWERCHART Bilirubin, Total, S 0.8 0.1 - 1.0 MGDL POWERCHART BUN (Blood Urea Nitrogen), S 14 7 - 18 MGDL POWERCHART Chloride, S 109(H) 98 - 107 MMOLL POWERCHART CO2 Total 20.3(L) 23.0 - 29.0 MMOLL POWERCHART Creatinine 0.67 0.60 - 1.30 MGDL POWERCHART Total Protein, S 5.3(L) 6.3 - 7.9 GDL POWERCHART Glucose 91 70 - 139 MGDL POWERCHART Calcium, Total, S 8.0(L) 8.6 - 10.0 MGDL POWERCHART Sodium, S 137.1 135.0 - 145.0 MML POWERCHART Potassium, S 4.2 3.6 - 4.8 MMOLL POWERCHART Albumin, S 3.1(L) 3.5 - 5.0 GDL POWERCHART HXeGFR (MDRD) >60 >=60 [id number] 2 POWERCHART eGFR Black/ >60 >=60 [id number] 2 POWERCHART Blood 03/13/2014 7:20 AM CDT us Malvin Malloy M.D. LAB BLOOD ADD-ON Final Res ult POWERCHART * (ABNORMAL) Lipid Panel (02/19/2013 10:10 AM CDT) Cholesterol, Total 135 0 - 200 MGDL POWERCHART Comment: <200 mg/dL Desirable 200-239 mg/dL Borderline High >239 mg/dL High HX HDL 41 35 - 60 MGDL POWERCHART Comment: > 60 mg/dL Desirable 40 60 mg/dL Low Risk <40 mg/dL Undesirable Triglycerides 128 9 - 150 MGDL POWERCHART Comment: <150 mg/dL Desirable 150-199 mg/dL Borderline High 200-499 mg/dL High > 499 Very High Calculated LDL 68(L) 100 - 129 MGDL POWERCHART Total Cholesterol/HDL Ratio 3 POWERCHART Blood 02/19/2013 10:1 0 AM CDT Annamaria Toth M.D. LAB BLOOD ADD-ON Final Result POWERCHART from Last 3 Months or Most Recently Relevant to Health Maintenance Insurance [place] Care Teams Pattern Cutter Relationship Specialty Start Date End Date Elsewhere, Pcp PCP - General Family Medicine 09/08/19
--- OUTSIDE RECORDS SUMMARY | 2025-02-10 20:44 | XMS_ITS | Encounter Summary ---
Author Organization [facility] er Address [address] [place] [address] Care Team Providers Care Search Director Name Role Phone Nola Perez APRN, PROCESS CONTROL TECH Primary Care Provi daniel Reason for Visit * Reason Comments Med Refill Encounter Details Date Type Department Care Team (Late st Contact Info) Description 02/19/2024 Refill [place] [address] [place] [address] Robin Mason MD Coronary artery disease without angina pectoris, unspecified vessel or lesion type, unspecified whether chilkat or transplanted heart Social History Tobacco Use [...] encounter Miscellaneous Notes * Telephone Encounter - Jenifer Galeana RN - 02/20/2024 2:31 PM CDT Patient declined needing refill. * Telephone Encounter - Jenifer Galeana RN - 02/20/2024 2:31 PM CDT Noted. * Telephone Encounter - Makayla Gray - 02/20/2024 12:31 PM CDT Sue stated she is seeing a provider outside of [facility] but would not state who she is seeing at this time so no refills are needed * Telephone Encounter - Jenifer Galeana RN - 02/20/2024 10:34 AM CDT Please call patient to schedule an appointment. * Telephone Encounter - Reena Patel RN - 02/20/2024 10:33 AM CDT Please call patient to make an appointment * Telephone Encounter - Jenn Enrique APRN - 02/20/2024 10:19 AM CDT I will do a one time refill but she is due for her yearly exam. If she would like to come in beforeher appointment and have labs done, I have placed those lab orders. * Telephone Encounter - Whitney Springer MA - 02/20/2024 8:58 AM CDT Patient is due for (WAE) appointment. PSR: Please contact patient to assist with scheduling. Upcoming appointment with provider: Visit date not found Last visit in provider department: 01/01/2023 Last visit requested medication was discussed: 01/01/2023 Last Rx: 03/04/2023 # 180, 3 refill Requested Prescriptions Pending Prescriptions Disp Refills metoprolol tartrate (LOPRESSOR) 25 MG tablet [Pharmacy Med Name: METOPROLOL TARTRATE 25MG TABS] 180tablet 3 Sig: TAKE ONE TABLET BY MOUTH TWICE A DAY Labs: Component Latest Ref Rng 01/01/2023 Sodium 135 - 145 mmol/L 140 Potassium 3.5 - 5.1 mmol/L 4.8 Chloride 98 - 107 mmol/L 103 CO2 22 - 29 mmol/L 31 (H) Creatinine 0.4 - 1.2 mg/dL 0.7 BUN 5 - 25 mg/dL 18 Glucose 70 - 100 mg/dL 135 (H) Calcium, Total,S 8.4 - 10.2 mg/dL 10.1 Vitals: BP Readings from Last 2 Encounters: 01/01/23 139/89 09/03/22 134/80 Last Controlled Substance Agreement (CSA): Last Random Urine Drug Screen (RUDS): documented in this encounter Plan of Treatment Not on file documented as of this encounter Visit Diagnoses Diagnosis Coronary artery disease without angina pectoris, unspecified vessel or lesion type, unspecified whether chilkat or transplanted heart documented in this encounter Care Teams Search Director Relationship Specialty Start Date End Date Nola Perez, CATERING ASSOCIATE, PROCESS CONTROL TECH [address] [facility] [place] [address] PCP - General Family Medicine 08/24/24 documented as of this encounter
--- OUTSIDE RECORDS SUMMARY | 2025-02-10 20:44 | XMS_ITS | Encounter Summary ---
Author Organization [facility] er Address [address] [place] [address] Care Team Providers Care Permit Coordinator Name Role Phone Nola Perez APRN, MENTAL HEALTH THERAPIST Primary Care Provi daniel Reason for Visit * Reason Comments Med Refill Encounter Details Date Type Department Care Team (Late st Contact Info) Description 10/10/2019 Refill [place] [address] [place] [address] Nola Perez APRN, MENTAL HEALTH THERAPIST [address] [address] Essential hypertension Social History Tobacco Use Types Packs/Day Years [...] encounter Miscellaneous Notes * Telephone Encounter - Tracie Wilder MA - 10/11/2019 2:22 PM FINANCIAL CENTER MANAGER Verified with pharmacy that they still have refills available from 07/15/19 Rx. NCIAL CENTER MANAGER documented in this encounter Plan of Treatment Not on file documented as of this encounter Visit Diagnoses Diagnosis Essential hypertension Unspecified essential hypertension documented in this encounter Care Teams Permit Coordinator Relationship Specialty Start Date End Date Nola Perez APRN, [address] [place] [address] PCP - General Family Medicine 08/24/24 documented as of this encounter
--- OUTSIDE RECORDS SUMMARY | 2025-02-10 20:44 | XMS_ITS | Encounter Summary ---
Author Organization [facility] er Address [address] [place] [address] Care Team Providers Care Proof Load Mechanic Name Role Phone Nola Perez APRN, REGIONAL OPERATIONS MANAGER Primary Care Provi daniel Reason for Visit * Reason Comments Med Refill Encounter Details Date Type Department Care Team (Late st Contact Info) Description 05/10/2024 Refill [place] [address] [place] [address] Jenn Enrique APRN [address] [place] [address] Insomnia, unspecified type Social History Tobacco Use Types Packs/Day [...] encounter Miscellaneous Notes * Telephone Encounter - Nikky Ibarra - 05/12/2024 9:45 AM CDT Letter sent. * Telephone Encounter - Sejal Bolden - 05/11/2024 1:27 PM CDT TCB to schedule annual exam/establish care with Jenn Enrique or Dr. Encarnacion. * Telephone Encounter - Theresa Fang LPN - 05/11/2024 12:46 PM CDT Patient is due for Annual establish care appointment. PSR: Please contact patient to assist with scheduling. Upcoming appointment with provider: Visit date not found Last visit in provider department:12/12/22 Last visit requested medication was discussed:12/08/21 Last Rx: nortriptyline (PAMELOR) 25 MG capsule 360# no Rf 02/17/24 Requested Prescriptions Pending Prescriptions Disp Refills nortriptyline (PAMELOR) 25 MG capsule [Pharmacy Med Name: NORTRIPTYLINE HCL 25MG CAPS] 360 capsule 0 Sig: TAKE 3-4 CAPSULES BY MOUTH ONCE A DAY AT BEDTIME. Labs: Component Latest Ref Rng 09/09/2023 Microalbumin,mg/day 0.0 - 16.6 mg/L <6.0 Creatinine, Urine mg/dL 34 Microalb/Creat Ratio 0 - 24 mg/g see below Hemoglobin A1C 4.0 - 5.6 % A1C 7.0 (H) Legend: (H) High Vitals: BP Readings from Last 2 Encounters: 01/01/23 139/89 09/03/22 134/80 Last Controlled Substance Agreement (CSA): Last Random Urine Drug Screen (RUDS): documented in this encounter Plan of Treatment Not on file documented as of this encounter Visit Diagnoses Diagnosis Insomnia, unspecified type documented in this encounter Care Teams Proof Load Mechanic Relationship Specialty Start Date End Date Nola Perez, CAMPUS WELLNESS COORDINATOR, REGIONAL OPERATIONS MANAGER [address] [place] [address] PCP - General Family Medicine 08/24/24 documented as of this encounter
--- OUTSIDE RECORDS SUMMARY | 2025-02-10 20:44 | XMS_ITS | Encounter Summary ---
Author Organization [facility] er Address [address] [place] [address] Care Team Providers Care Relish Blender Name Role Phone Nola Perez APRN, CNP Primary Care Provi daniel Encounter Details Date Type Department Care Team (Late st Contact Info) Description 06/04/2019 Telephone [place] [address] [place] [address] Nola Perez APRN, FIRE PROTECTION ENGINEER [facility] [address] [place] [address] Social History Tobacco Use Types Packs/Day Years [...] on file documented as of this encounter Plan of Treatment Not on file documented as of this encounter Visit Diagnoses Not on filedocumented in this encounter Care Teams Relish Blender Relationship Specialty Start Date End Date Nola Perez APRN, HOWARD [address] [place] [address] PCP - General Family Medicine 08/24/24 documented as of this encounter
--- OUTSIDE RECORDS SUMMARY | 2025-02-10 20:44 | XMS_ITS | Clinical Summary ---
Author Organization [facility] er Address [address] [place] [address] Care Team Providers Care Personal Lines Insurance Advisor Name Role Phone Ashwini Perez APRN, OIL SPRAYER Primary Care Provi daniel Allergies Active Allergy Reactions Criticality Noted Date Comments Azithromycin Medications aspirin 81 MG chewable tablet Chew 1 tablet (81 mg total) 1 (one) time each day Active nitroglycerin (NITROSTAT) 0.[address] 1 tablet (0.4 mg total) under the tongue 8 Active CALCIUM CARBONATE-VIT D-MIN PO Active lansoprazole (PREVACID) [address] capsuleIndications: Gastroesophageal reflux disease without esophagitis TAKE ONE CAPSULE BY MOUTH EVERY DAY FOR GERD 90 capsule 3 3 Active Dulaglutide (Trulicity) 0.75 MG/0.5ML solution pen-injectorIndicat ions:Type 2 diabetes mellitus without complication, without long-term current use of insulin (HCC) Inject 0.75 mg ONCE weekly subcutaneous . 4 mL 5 3 Active metoprolol tartrate (LOPRESSOR) 25 MG tabletIndications:C oronary artery disease without angina pectoris, unspecified vessel or lesion type, unspecified whether [place] or transplanted heart TAKE ONE TABLET BY MOUTH TWICE A DAY 180 tablet 3 3 Active clopidogrel (PLAVIX) 75 MG tabletIndications:C oronary artery disease without angina pectoris, unspecified vessel or lesion type, unspecified whether [place] or transplanted heart TAKE 1 TABLET BY MOUTH EVERY DAY 90 tablet 3 3 Active metFORMIN (GLUCOPHAGE) 1000 MG tabletIndications:T ype 2 diabetes mellitus without complication, without long-term current use of insulin (HCC) TAKE ONE TABLET BY MOUTH TWICE A DAY FOR DIABETES 180 tablet 1 3 Active simvastatin (ZOCOR) 40 MG tabletIndications:H yperlipidemia, unspecified hyperlipidemia type Take ONE FULL TAB once daily 90 tablet 3 3 Active glipiZIDE (Glucotrol) 5 MG tabletIndications:T ype 2 diabetes mellitus without complication, without long-term current use of insulin (HCC) Take 1/2 tab twice a day for diabetes 90 tablet 1 3 Active gabapentin (NEURONTIN) 600 MG tabletIndications:P eripheral polyneuropathy Take 1 tablet (600 mg total) by mouth 3 (three) times a day 270 tablet 3 3 Active lisinopril (ZESTRIL) 20 MG tabletIndications:E ssential hypertension TAKE 1 TABLET [20MG] BY MOUTH EVERY DAY FOR BLOOD PRESSURE 90 tablet 4 Active buPROPion (WELLBUTRIN) 75 MG tabletIndications:E ncounter for smoking cessation counseling TAKE ONE TABLET BY MOUTH TWICE A DAY 180 tablet 4 Active nortriptyline (PAMELOR) 25 MG capsuleIndications: Insomnia, unspecified type Take 4 capsules (100 mg total) by mouth at bed time TAKE 3-4 CAPSULES BY MOUTH ONCE A DAY AT BEDTIME. 120 capsule 4 Active Active Problems Problem Noted Date Diagnosed Date Aguilar's esophagus without dysplasia 08/18/2020 Type 2 diabetes mellitus wit hout complication, without long-term current use of insulin 08/18/2020 Neurodermatitis 08/18/2020 Insomnia 06/12/2017 Major depressive disorder, single episode 2016 Paresthesia of skin 05/02/2016 Low back pain 03/25/2016 Palpitations 11/24/2015 Peripheral polyneuropathy 06/13/2015 Neuropathy 04/25/2015 Hypertension 03/21/2014 Cholelithiasis 03/17/2014 Phlegmon of pancreas 03/17/2014 Nicotine use disorder 07/13/2012 AUBREE (obstructive sleep apnea) 07/13/2012 CAD in [place] artery 07/25/2011 Overview (08/18/2020): Overview: Coronary artery disease (CAD) Overview: s/p inferior [place] 05/2011; PCi with SIRISHA to LCx Benign essential hypertension 05/28/2011 Overview (08/18/2020): Overview: Benign hypertension Acute myocardial infarction of inferior wall, initial episode of care 05/21/2011 Immunizations Immunization Administration Dates Next Due Flu Vaccine 50-64yrs Flublok (Egg Free) 08/18/20 20 Influenza, Split Virus, Triv alent, Preservative 08/11/2014 Influenza, Trivalent, PF 07/20/2012 MMR 10/10/1998 Td 10/24/1997 Td, Unspecified 10/24/1997 Tdap 08/11/2014,02/11/2013,02/19/2007 Family History Medical History Relation Comments Hyperlipidemia Father Hypertension Father Skin cancer Father Colon cancer Father's Brother Heart disease Mother Hyperlipidemia Mother Hypertension Mother Osteoporosis Mother Esophageal cancer Mother's Brother Relation Status Comments Brother 1 Alive Brother 2 Alive Brother 3 Alive Daughter 1 Alive Daughter 2 Alive Father Alive Father's Brother Mother Mother's Brother Son 1 Alive Son 2 Alive Social History Tobacco Use Types Packs/Day Years [...] file Not on file Not on file Last Filed Vital Signs Vital Sign Reading Time Taken Comments Blood Pressure 139/89 01/01/2023 9:37 AM CDT Pulse 73 01/01/2023 9:37 AM CDT Temperature 36.2 C (97.2 F) 01/01/2023 9:37 AM CDT Respiratory Rate 18 01/01/2023 9:37 AM CDT Oxygen Saturation 95% 09/03/2022 9:36 AM CLIENT SERVICE PROFESSIONAL Inhaled Oxygen Concentration - - Weight 82.3 kg (181 lb 6.4 oz) 09/03/2022 9:36 A M CLIENT SERVICE PROFESSIONAL Height 157.5 cm (5' 2.01) 09/03/2022 9:36 AM CS T Body Mass Index 33.17 09/03/2022 9:36 AM CLIENT SERVICE PROFESSIONAL Plan of Treatment Health Maintenance Due Date Last Done Comments CT Colonography 1960 FIT-DNA 1960 Sigmoidoscopy 1960 iFOBT 1958 Fall Risk Performed 1976 Pneumococcal Vaccine: 50+ Years (1 of 2 - PCV) 1977 Zoster Vaccines (1 of 2) 2008 Mammogram 11/17/2021 11/17/2020, 1201/2019, 09/08/2019, Additional history exists Bone Density Scan 03/29/2024 03/29/2019, , 01/14/2017, Additional history exists COVID-19 Vaccine ( season) 2024 09/14/2021, 01/30/2021, 01/09/2021 Influenza Vaccine (#1) 2024 , 08/11/2014, 07/20/2012 Colonoscopy 09/13/2025 09/13/2020, 02/19/2014 Colorectal Cancer Screening 09/13/2025 DTaP,Tdap,and Td Vaccines (5 - Td or Tdap) 05/26/2034 05/26/2024, 08/11/2014, 02/11/2013, Additional history exists Pap Smear Discontinued 08/30/2019 HPV Vaccines Aged Out No longer eligi ble based on patient's age to complete this topic Procedures Procedure Name Priority Date/Time Associated Diagnosis Comments PAP TEST Routine 08/30/2019 3:30 PM CLIENT SERVICE PROFESSIONAL Pap smear for cervical cancer screening from Last 3 Months or Most Recently Relevant to Health Maintenance Results * Pap Smear (08/30/2019 3:30 PM CLIENT SERVICE PROFESSIONAL) Sure Path PAP, screen 08/30/2019 3:30 PM CLIENT SERVICE PROFESSIONAL 08/31/2019 3:19 PM CLIENT SERVICE PROFESSIONAL [facility] - 09/07/2019 1:45 PM CLIENT SERVICE PROFESSIONAL [place] [id number] Patient: RADHA MICHAUD Procedure: 08/30/2019 15:30 /Age/Sex: 1960, 58 Y, F Received: 08/31/2019 15:19 [place] Patient Location: [facility] Ordered by: ASHWINI PEREZ APRN, CNP Attending: ASHWINI PEREZ APRN, CNP DENTAL INSTRUCTOR CYTOLOGY FINAL REPORT SPECIMEN: (A) SURE PATH PAP, SCREEN SPECIMEN DESCRIPTION: Vaginal Received cloudy specimen in SurePath vial. CLINICAL INFORMATION: SPECIMEN ADEQUACY: Satisfactory for Evaluation GENERAL CATEGORIZATION: Negative for Intraepithelial Lesion or Malignancy PAP Test Disclaimer Cervical cytology is a screening test primarily for squamous cancer and its precursors and has associated false-negative and false-positive results. Regular sampling and follow-up of unexplained clinical signs and symptoms are recommended to minimize the impact of false negative and false positive results. Screened By: Signed By: MARIA TERESA MARX(ASCP) <Sign Out Signature> Reported: 09/07/2019 Page 1 of 1 us Ashwini Perez APRN, OIL SPRAYER LAB CYTOLOGY ORDERA BLES Final Result [facility] [address] [place] [address] from Last 3 Months or Most Recently Relevant to Health Maintenance Insurance [facility] Care Teams Personal Lines Insurance Advisor Relationship Specialty Start Date End Date Ashwini Perez APRN, OIL SPRAYER [address] [place] [address] PCP - General Family Medicine 08/24/24
== END 2025-02-10 17:25 | disposition home or self-care (01) ==
PROVIDERS: Emergency Provider Family Medicine; PCP Nurse Practitioner Family
DX: L03.211 Cellulitis of face (principal); K04.7 Periapical abscess without sinus
CPT/HCPCS: 36415; 70486; 70491; 80053; 85025; 86140; 96365; 96375; 99284; 99285; J0295; J1885; Q9967

== ENCOUNTER 2025-05-10 13:19 | Outpatient (CLI) | payer MEDICARE, BC, SELFPAY | END 2025-05-10 13:20 | disposition home or self-care (01) | PROVIDERS: PCP Nurse Practitioner Family; Visit Provider Nurse Practitioner Family | DX: E78.5 Hyperlipidemia, unspecified (principal); R74.8 Abnormal levels of other serum enzymes; E11.69 Type 2 diabetes mellitus with other specified complication; I10 Essential (primary) hypertension; M85.80 Other specified disorders of bone density and structure, unspecified site; I25.10 Atherosclerotic heart disease of native coronary artery without angina pectoris; G62.9 Polyneuropathy, unspecified | CPT/HCPCS: 80053; 80061; 82043; 82570; 82607; 84443 ==

== ENCOUNTER 2025-05-11 09:04 | Outpatient (CLI) | payer MEDICARE, BC, SELFPAY ==
[2025-05-11 12:05] LABS: Potassium* 4.9 mmol/L (3.6-5.1)
== END 2025-05-11 09:05 | disposition home or self-care (01) ==
LOC: KYNREF 09:05
PROVIDERS: PCP Nurse Practitioner Family; Visit Provider Nurse Practitioner Family
DX: E87.5 Hyperkalemia (principal)
CPT/HCPCS: 84132

== ENCOUNTER 2025-09-07 14:42 | Outpatient (CLI) | payer MEDICARE, BC, SELFPAY ==
--- NOTE | 2025-09-07 14:40 | CRLHL7_ITS ---
For Patients: As a result of the Century Cures Act, medical imaging exams and procedure reports are released immediately into your electronic medical record. You may view this report before your referring provider. If you have questions, please contact your health care provider. BILATERAL DIGITAL SCREENING MAMMOGRAM WITH COMPUTER-AIDED DETECTION AND TOMOSYNTHESIS CLINICAL HISTORY: Routine screening exam. COMPARISON: 05/25/2024, 11/17/2020, 09/08/2019. TECHNIQUE: Digital mammogram in CC and MLO projections including computer-aided detection (CAD). Tomosynthesis was used in this interpretation. BREAST COMPOSITION: There are scattered areas of fibroglandular density. FINDINGS: RIGHT Breast: No suspicious findings. LEFT Breast: There are two groups of microcalcifications within the LEFT breast. IMPRESSION: LEFT breast calcifications. RECOMMENDATIONS: Spot compression magnification views of the calcifications in the LEFT breast in CC and ML projections. The [facility] will contact the patient. A lay language report of this examination will be provided to the patient. BI-RADS Category 0: Incomplete: Need Additional Imaging Evaluation Dictated by Isac Gutierrez MD @ 09/08/2025 10:14:58 AM /sp SP/Dictated by: Isac Gutierrez MD @ 09/08/2025 10:14:00 AM (Electronically Signed)
== END 2025-09-07 14:43 | disposition home or self-care (01) ==
LOC: MAMMO 14:44
PROVIDERS: PCP Nurse Practitioner Family; Visit Provider Nurse Practitioner Family
DX: Z12.31 Encounter for screening mammogram for malignant neoplasm of breast (principal); R92.1 Mammographic calcification found on diagnostic imaging of breast
CPT/HCPCS: 77063; 77067

== ENCOUNTER 2025-09-16 10:33 | Outpatient (CLI) | payer MEDICARE, BC, SELFPAY ==
--- NOTE | 2025-09-16 10:45 | CRLHL7_ITS ---
For Patients: As a result of the Century Cures Act, medical imaging exams and procedure reports are released immediately into your electronic medical record. You may view this report before your referring provider. If you have questions, please contact your health care provider. DIGITAL DIAGNOSTIC LEFT MAMMOGRAM CLINICAL HISTORY: LEFT breast calcification. COMPARISON: 09/07/2025, 05/25/2024, 11/17/2020. TECHNIQUE: Digital LEFT mammogram in three projections. BREAST COMPOSITION: There are scattered areas of fibroglandular density. FINDINGS: Clustered non layering microcalcifications are present within the lower outer quadrant 8 cm from the nipple with slight pleomorphism. A second grouping of punctate calcifications is present within the more anterior breast. These appear benign. IMPRESSION: Indeterminate clustered microcalcifications within the posterior LEFT breast lower outer quadrant 8 cm from the nipple. RECOMMENDATIONS: Stereotactic biopsy should be considered. A lay language report of this examination will be provided to the patient. BI-RADS Category 4: Suspicious Dictated by Isac Gutierrez MD @ 09/16/2025 11:26:55 AM jj/Dictated by: Isac Gutierrez MD @ 09/16/2025 11:26:00 AM (Electronically Signed)
== END 2025-09-16 10:34 | disposition home or self-care (01) ==
LOC: MAMMO 10:34
PROVIDERS: PCP Nurse Practitioner Family; Visit Provider Nurse Practitioner Family
DX: R92.1 Mammographic calcification found on diagnostic imaging of breast (principal); R92.0 Mammographic microcalcification found on diagnostic imaging of breast; R92.8 Other abnormal and inconclusive findings on diagnostic imaging of breast
CPT/HCPCS: 77065